=== PATIENT | male | born 1975 | race Caucasian/White ===

== ENCOUNTER 2021-04-11 16:04 | Emergency (ER) | payer BC, SELFPAY ==
--- NOTE | ~2021-04-11 | CT_ITS ---
EXAMINATION: CT ABDOMEN AND PELVIS WITHOUT CONTRAST CLINICAL INFORMATION: Hematuria status post fall COMPARISON: 12/03/2017 TECHNIQUE: Multidetector volumetric imaging was performed from the superior aspect of the liver through the pubic symphysis. Sagittal and coronal reformatted images were obtained on the technologist's workstation. This CT examination was performed using dose optimization techniques as appropriate, variously including the following: *Automated exposure control *Adjustment of mA and/or kV according to patient size (this includes techniques or standardized protocols for targeted exams where dose is matched to indication/reason for exam; i.e. extremities or head) *Use of iterative reconstruction technique DLP: 1365 mGy-cm FINDINGS: LUNG BASES: The visualized lung bases are unremarkable. LIVER, GALLBLADDER, AND BILIARY TREE: Changes of diffuse hepatic steatosis. No discrete lesion. No biliary dilatation. Gallstones without acute inflammatory changes. PANCREAS: Unremarkable. SPLEEN: Unremarkable. ADRENAL GLANDS: Unremarkable. KIDNEYS AND URETERS: The kidneys are normal in size, shape, and attenuation. No hydronephrosis, hydroureter, or calculi seen. No perinephric stranding. BLADDER: Unremarkable. GASTROINTESTINAL TRACT: Evidence for previous bowel resection with evidence for ileocolic anastomosis noted within the abdomen anteriorly. This appears unremarkable. No fibrous band anteriorly within the abdomen is again noted without evidence for any incarceration or definite hernia. No obstruction or serosal lesion. No free fluid. Gastric sleeve postsurgical changes noted as well. ABDOMINAL WALL: No significant hernia is appreciated. LYMPH NODES: Normal. VASCULAR: Unremarkable. PELVIC VISCERA: Unremarkable. OSSEOUS STRUCTURES: Unremarkable. CT/CT abdomen pelvis wo con IMPRESSION: No specific findings of any renal trauma. No stones. Chronic findings as above.
--- NOTE | ~2021-04-11 | CT_ITS ---
EXAMINATION: CT HEAD WITHOUT CONTRAST CLINICAL INFORMATION: Trauma COMPARISON: None TECHNIQUE: Contiguous axial imaging was performed from the skull base to vertex without intravenous administration of contrast. This CT examination was performed using dose optimization techniques as appropriate, variously including the following: *Automated exposure control *Adjustment of mA and/or kV according to patient size (this includes techniques or standardized protocols for targeted exams where dose is matched to indication/reason for exam; i.e. extremities or head) *Use of iterative reconstruction technique DLP: 1014 mGy-cm FINDINGS: There is no evidence of acute intracranial hemorrhage or territorial infarction. No abnormal mass effect or midline shift is seen. [place] to white matter differentiation is well preserved. No extra-axial fluid collections are identified. The ventricles are normal in size. There is no abnormal attenuation within the brain parenchyma. The osseous structures and soft tissues are normal. The mastoid air cells and visualized portions of the paranasal sinuses are well aerated. CT/CT head/brain wo con IMPRESSION: No acute intracranial pathology.
[2021-04-11 16:17] VITALS: BP 133/95; BP 175/105; PULSE 104; PULSE 110; RESP 20; TEMP 37.6; O2SAT 94; O2SAT 96; BMI 50.1
--- NOTE | 2021-04-11 16:29 | ED.FALL ---
HPI - Fall General Chief Complaint: Fall Stated Complaint: BACK PAIN W/BLOOD IN URINE Time Seen by Provider: 04/11/21 16:08 Source: patient Limitations: no limitations History of Present Illness HPI Narrative: Patient had a slip and fall yesterday. He states he stepped on [place] while he was working on his car and he slipped and fell landing on his left flank. He had immediate pain but otherwise felt okay. Later on he began having more pain and then developed hematuria. He states it started with clots. He has a history of kidney stones but this feels different. No recent fevers or chills. He states his urine is getting little bit better today. Prior to arrival, however, he was apparently confused. This prompted his to call EMS. He states he feels much less confused currently. He has a history of diabetes for which he is supposed to be on metformin. But he has been having trouble finding a new primary care provider and has not had any metformin approximately 2 weeks. He denies feeling ill prior to his fall. He is not on blood thinners. He did not hit his head. Related Data Previous Rx's Medication Instructions Recorded oxycodone-acetaminophen 5 mg-325 1 tab PO TID PRN #10 tab 04/11/21 mg tablet (Percocet) sulfamethoxazole 800 1 tab PO BID #10 tab 04/11/21 mg-trimethoprim 160 mg tablet (Bactrim DS) Allergies Allergy/AdvReac Type Severity Reaction Status Date / Time iodine [IODINE] Allergy Intermediate HIVES Unverified 04/02/20 15:17 haloperidol [Haldol] Allergy Unknown Unknown Verified 04/11/21 16:16 shellfish Allergy Unknown SOB Unverified 04/18/18 00:00 sitagliptin [Januvia] Allergy Unknown diarrhea Verified 01/30/17 00:00 hydromorphone [From Dilaudid] Allergy Unknown Verified 04/11/21 16:16 Review of Systems Constitutional: Comments: No headache or loss of consciousness. Positive confusion however Cardiovascular: Comments: No chest pain Respiratory: Comments: Some difficulty breathing which he attributes to the pain Gastrointestinal: Comments: No anterior abdominal pain. Positive bilateral flank pain, left greater than right Genitourinary: Comments: Hematuria. Some dysuria Musculoskeletal: Comments: No extremity injuries Neurologic: Comments: No focal weakness. No vision change [facility] Past Medical History Medical History (Updated 04/11/21 @ 20:13 by Raymond Muñiz MD) Diabetes GERD (gastroesophageal reflux disease) Social History Social History Smoked in Last 30 Days: No Use of substances other than those prescribed or required for medical reasons: No Advance Directives: No Advance Directives Information Provided: No Physical Exam Vital Signs: Vital Signs: Last Vital Signs Temp 99.6 F 04/11/21 16:17 Pulse 100 04/11/21 18:02 Resp 18 04/11/21 18:02 BP 170/85 H 04/11/21 18:28 Pulse Ox 96 04/11/21 18:02 Body Mass Index 50.1 Const: Other: Awake and alert. Appears uncomfortable when moving. HENMT: Other: Normocephalic atraumatic Eyes: Other: Pupils equal round reactive to light Neck: Other: Full range of motion. No midline tenderness Chest: Other: No chest wall tenderness crepitus or deformity Resp: Other: Clear and equal bilaterally without wheezes rales or rhonchi Cardio: Other: Regular rate and rhythm GI: Other: Soft nontender nondistended anteriorly. Positive left flank tenderness to percussion Skin: Other: Warm pink and dry. Positives and venous stasis changes bilateral lower extremities Neuro: Other: Awake and alert. Ambulatory. Nonfocal neuro exam Extrem: Other: No obvious extremity trauma Course Course Course Narrative: Hematuria post fall. Rule out renal laceration versus contusion. Retroperitoneal hemorrhage Kidney stone possible but less likely. Urinary tract infection Uncontrolled diabetes Diabetic ketoacidosis Dehydration brain Confusion Intracranial hemorrhage Concussion IV fluids ordered CT scan brain and abdomen. Patient has iodine allergy so we will do without contrast. Fentanyl IV. 11:00 p.m.. Workup in emergency department is reassuring in that the CT of the brain as well as the abdomen show no obvious acute traumatic injuries. His lab work is reassuring. His urinalysis, however, does show white cells consistent with a possible urinary tract infection. Will treat him with 5 days of Bactrim DS. Percocet for back pain. Work note MDM - Fall Lab Data Result diagrams: 04/11/21 16:45 04/11/21 16:45 Labs: Lab Results 04/11/21 04/11/21 04/11/21 Range/Units 16:45 16:45 19:32 WBC 16.6 H (4.8-10.8) X10*3/uL RBC 4.98 (4.60-5.80) X10*6/uL Hgb 14.3 (14.0-18.0) g/dl Hct 42.0 (42-52) % MCV 84.3 (80-98) fL MCH 28.7 (27.0-33.0) pg MCHC 34.0 (31.0-36.0) g/dl RDW 13.2 (11.0-16.0) % Plt Count 224 (160-400) X10*3/uL MPV 9.6 (9.4-12.4) fL Immature Gran % (Auto) 0.5 H (0.0-0.4) % Neut % (Auto) 70.9 (45-73) % Lymph % (Auto) 15.4 L (20-40) % [place] % (Auto) 11.0 (2-11) % Eos % (Auto) 1.8 (0-4) % Baso % (Auto) 0.4 (0-2) % Lymph # (Auto) 2.6 (1.2-4.9) X10*3/uL [place] # (Auto) 1.8 H (0.1-1.2) X10*3/uL Eos # (Auto) 0.3 (0.0-0.4) X10*3/uL Baso # (Auto) 0.1 (0.0-0.2) X10*3/uL Abs Immat Gran (auto) 0.09 H (0.00-0.03) X10*3/uL Absolute Neuts (auto) 11.8 H (2.0-8.3) X10*3/uL Absolute Nucleated RBC 0.000 (0.0-0.012) X10*3/uL Nucleated RBC % (auto) 0.0 (0.0-0.2) /100WBC Smear Tech's Comments VERIFIED Sodium 136 (135-145) mmol/L Potassium 3.7 (3.3-5.1) mmol/L Chloride 106 (96-108) mmol/L Carbon Dioxide 22 (22-29) mmol/L Anion Gap 12 (12-20) BUN 9 (9-16) mg/dL Creatinine 0.81 (0.5-1.4) mg/dL Estim Creat Clear Calc 218.4 Estimated GFR > 60 Random Glucose 182 H (60-115) mg/dL Calcium 8.5 (8.4-10.2) mg/dL Total Bilirubin 2.9 H (0.0-1.0) mg/dL AST 14 (5-37) U/L ALT 19 (0-40) U/L Alkaline Phosphatase 70 (39-117) U/L Total Protein 6.3 L (6.5-8.0) g/dL Albumin 3.7 (3.5-5.0) g/dL Urine Color YELLOW Urine Appearance HAZY Urine pH 6.0 (5.0-8.0) Ur Specific [place] 1.015 (1.005-1.025) Urine Protein 1+ H (NEG-TRACE) MG/DL Urine Glucose (UA) NEG (NEG) MG/DL Urine Ketones 5 (NEG) MG/DL Urine Blood 3+ H (NEG) Urine Nitrite NEG (NEG) Ur Leukocyte Esterase 1+ H (NEG) Urine RBC 15-29 H (0) /HPF Urine WBC 30-49 H (0-4) /HPF Urine WBC Clumps NOTED Ur Squamous Epith Cells TRACE /LPF Urine Bacteria 2+ /LPF Acetone, Qual Negative (Negative) Discharge Plan Discharge Clinical Impression: Low back pain Qualifiers: Chronicity: acute Back pain laterality: left Sciatica presence: without sciatica Qualified Code(s): M54.5 - Low back pain Urinary tract infection Qualifiers: Urinary tract infection type: acute cystitis Hematuria presence: with hematuria Qualified Code(s): N30.01 - Acute cystitis with hematuria Patient Disposition: Home, Self-Care Instructions: Urinary Tract Infection in Men (ED), Acute Low Back Pain (ED) Prescriptions: New sulfamethoxazole-trimethoprim [Bactrim DS] 800-160 mg tablet 1 tab PO BID Qty: 10 RF: 0 oxycodone-acetaminophen [Percocet] 5-325 mg tablet 1 tab PO TID PRN (Reason: pain) Qty: 10 RF: 0
[2021-04-11] MEDS: fentaNYL citrate/PF 100 MCG/2 ML VIAL IVPUSH ×2 (16:34→18:16)
[2021-04-11] MEDS: 0.9 % Sodium Chloride 1,000 ML 999 ML IV (16:35)
[2021-04-11 16:51] LABS: Basophils Absolute Auto 0.1 X10*3/uL (0.0-0.2); Basophils Percent Auto 0.4 % (0-2); Eosinophils Absolute Auto 0.3 X10*3/uL (0.0-0.4); Eosinophils Percent Auto 1.8 % (0-4); Hemoglobin 14.3 g/dl (14.0-18.0); Imm Gran Abs Auto 0.09 X10*3/uL (0.00-0.03); Imm Gran Pct Auto 0.5 % (0.0-0.4); Lymphocytes Absolute Auto 2.6 X10*3/uL (1.2-4.9); Lymphocytes Percent Auto 15.4 % (20-40); MANUAL DIFF FLAG SCAN; Mean Corpuscular Hemoglobin 28.7 pg (27.0-33.0); Mean Corpuscular Volume 84.3 fL (80-98); Mean Platelet Volume 9.6 fL (9.4-12.4); Monocytes Absolute Auto 1.8 X10*3/uL (0.1-1.2); Neutrophils Absolute Auto 11.8 X10*3/uL (2.0-8.3); Neutrophils Percent Auto 70.9 % (45-73); Platelet Count 224 X10*3/uL (160-400); Red Blood Count 4.98 X10*6/uL (4.60-5.80); Red Cell Distribution Width 13.2 % (11.0-16.0); SCAN SMEAR FLAG 1; White Blood Count 16.6 X10*3/uL (4.8-10.8)
[2021-04-11 17:05] LABS: Acetone, serum QL Negative (Negative)
[2021-04-11 17:08] LABS: Alanine Aminotransferase 19 U/L (0-40); Albumin Level 3.7 g/dL (3.5-5.0); Alkaline Phosphatase 70 U/L (39-117); Anion Gap 12 (12-20); Aspartate Amino Transferase 14 U/L (5-37); Bilirubin Total 2.9 mg/dL (0.0-1.0); Blood Urea Nitrogen 9 mg/dL (9-16); Calcium 8.5 mg/dL (8.4-10.2); Carbon Dioxide 22 mmol/L (22-29); Chloride 106 mmol/L (96-108); Creatinine Clr Calc Pharmacy 218.4; Estimated Glomerular Filt Rate > 60; Glucose Random 182 mg/dL (60-115); Potassium 3.7 mmol/L (3.3-5.1); Sodium 136 mmol/L (135-145); Total Protein 6.3 g/dL (6.5-8.0)
[2021-04-11 17:32] LABS: SLIDE REVIEW VERIFIED
[2021-04-11 18:02] VITALS: BP 181/98; PULSE 100; RESP 18; O2SAT 96
[2021-04-11 18:28] VITALS: BP 170/85
[2021-04-11 19:40] LABS: Appearance Urine HAZY; Color Urine YELLOW; Glucose Urine UA NEG (NEG); Leukocyte Esterase Urine 1+ (NEG); Nitrite Urine NEG (NEG); Specific Gravity - Urine 1.015 (1.005-1.025); UACC Culture Trigger YES; Urine Blood 3+ (NEG); Urine Ketones 5 MG/DL (NEG); Urine Protein 1+ MG/DL (NEG-TRACE)
[2021-04-11 19:48] LABS: WBC Urine 30-49 /HPF (0-4)
[2021-04-11 19:49] LABS: Bacteria Urine 2+ /LPF; Squamous Epithelial Cell Urine TRACE /LPF; WBC Clumps Urine NOTED
[2021-04-11 20:00] VITALS: RESP 17
--- NOTE | 2021-04-11 20:29 | PC.NURSE ---
PATIENT REFUSED VITALS TO BE TAKEN ,RN AWARE .
[2021-04-11] MEDS: Sulfamethox/Trimeth 800/160 TABLET 1 TAB PO (20:30)
== END 2021-04-11 20:34 | disposition home or self-care (01) ==
PROVIDERS: Emergency Provider Emergency Medicine; PCP Nurse Practitioner Family
DX: N30.01 Acute cystitis with hematuria (principal); G44.309 Post-traumatic headache, unspecified, not intractable; M54.5 Low back pain; Z79.899 Other long term (current) drug therapy
CPT/HCPCS: 36415; 70450; 74176; 80053; 81001; 82009; 85025; 87086; 87088; 87186; 96361; 96374; 96376; 99284; J3010

== ENCOUNTER 2021-10-01 11:32 | Outpatient (REF) | payer BC, SELFPAY ==
[2021-10-01 13:55] LABS: Appearance Urine TURBID; Color Urine YELLOW; Glucose Urine UA NEG (NEG); Leukocyte Esterase Urine NEG (NEG); Nitrite Urine NEG (NEG); PH 5.5 (5.0-8.0); Specific Gravity - Urine >= 1.030 (1.005-1.025); UACC Culture Trigger NO; Urine Blood NEG (NEG); Urine Ketones NEG (NEG); Urine Protein 1+ MG/DL (NEG-TRACE)
[2021-10-01 14:07] LABS: Estimated Average Glucose 169 mg/dL; Hemoglobin A1c % 7.5 %
[2021-10-01 14:12] LABS: Mucus Urine 1+ /LPF; RBC Urine 0 /HPF (0); WBC Urine 0-2 /HPF (0-4)
[2021-10-01 14:13] LABS: Amorphous Sediment Urine 2+ /LPF
[2021-10-01 14:14] LABS: Alanine Aminotransferase 23 U/L (0-40); Albumin Level 3.9 g/dL (3.5-5.0); Alkaline Phosphatase 70 U/L (39-117); Anion Gap 13 (12-20); Aspartate Amino Transferase 18 U/L (5-37); Bilirubin Total 3.4 mg/dL (0.0-1.0); Blood Urea Nitrogen 17 mg/dL (9-16); Calcium 9.3 mg/dL (8.4-10.2); Carbon Dioxide 23 mmol/L (22-29); Chloride 107 mmol/L (96-108); Cholesterol 118 mg/dL; Estimated Glomerular Filt Rate > 60; Glucose Fasting 169 mg/dL (60-99); HDL Cholesterol 42 mg/dL; LDL Cholesterol Calculated 48 mg/dl; Potassium 4.1 mmol/L (3.3-5.1); Sodium 139 mmol/L (135-145); Total Protein 6.7 g/dL (6.5-8.0); Triglycerides 142 mg/dL
[2021-10-01 14:19] LABS: Creatinine Urine 205.39 mg/dL; Microalbum/Creatinine Ratio Ur 150.9 ug/mg cr
== END 2021-10-01 11:33 | disposition home or self-care (01) ==
LOC: HO.HMGCLDS 11:32
PROVIDERS: Visit Provider Nurse Practitioner Family
DX: E11.9 Type 2 diabetes mellitus without complications (principal)
CPT/HCPCS: 36415; 80053; 80061; 81001; 81003; 82043; 83036; 84443

== ENCOUNTER 2021-12-22 07:51 | Emergency (ER) | payer BC, SELFPAY ==
[2021-12-22 07:58] VITALS: BP 155/102; PULSE 102; RESP 20; TEMP 37; O2SAT 97; BMI 46.0
--- NOTE | 2021-12-22 08:23 | ED_ITS ---
HPI - Abdominal Pain General Chief Complaint: Abdominal Pain Stated Complaint: N/V/D/Fever 3x days Time Seen by Provider: 12/22/21 08:10 Source: patient Mode of arrival: ambulatory Limitations: no limitations History of Present Illness HPI narrative: patient states Monday morning he woke up and had nausea vomiting and watery diarrhea. Is been ongoing since then. Last episode of vomiting was this morning. He states diarrhea has been very watery and multi colored and it has been yellow, green, brown. No black or melanotic stools. No history of similar issues. He does have a history of multiple intestinal surgeries secondary to abdominal trauma. History of ileostomy which was reversed more than 5 years ago. Positive fevers and chills without documented temperature. No urinary symptoms He states he has lost 17 lb since Monday. He has been drinking water and Gatorade but states it precipitates diarrhea. Related Data Home Medications Medication Instructions Recorded Confirmed omeprazole 20 mg capsule,delayed 20 mg PO DAILY 05/04/21 09/28/21 release Previous Rx's Medication Instructions Recorded alcohol swabs (Alcohol Prep Pads) 1 pad topical TID 30 days #100 ea 04/21/21 blood sugar diagnostic (FreeStyle #100 ea 04/21/21 Lite Strips) blood-glucose meter (FreeStyle #1 ea 04/21/21 Lite Meter) lancets 28 gauge (FreeStyle #100 ea 05/19/21 Lancets) irbesartan 75 mg tablet 75 mg PO DAILY 30 days #30 tabs 09/28/21 metformin 500 mg tablet 500 mg PO BID 30 days #60 tabs 11/08/21 nirmatrelvir 300 mg (150 mg x See Rx Instructions PO .COMPLEX 11/29/21 2)-ritonavir 100 mg tablet (EUA) #30 tabs (Paxlovid 300 mg () atorvastatin 10 mg tablet 10 mg PO BEDTIME 90 days #90 tabs 12/20/21 ondansetron 4 mg disintegrating 4 mg PO Q8H PRN nausea and 12/22/21 tablet vomiting #14 tabs Allergies Allergy/AdvReac Type Severity Reaction Status Date / Time iodine [IODINE] Allergy Intermediate HIVES Verified 09/28/21 13:09 haloperidol [Haldol] Allergy Unknown Unknown Verified 09/28/21 13:09 shellfish Allergy Unknown SOB Verified 09/28/21 13:09 sitagliptin [Januvia] Allergy Unknown diarrhea Verified 09/28/21 13:09 hydromorphone [From Dilaudid] Allergy Nausea Verified 09/28/21 13:09 Review of Systems Comments: Subjective fevers and chills Cardiovascular: Denies chest pain Respiratory: Denies cough Gastrointestinal: Denies abdominal pain and Reports diarrhea Musculoskeletal: Reports no additional musculoskeletal complaints Skin/Breast: Reports system reviewed and no additional complaints, except as docu Reports system reviewed and no additional complaints, except as documented [facility] Past Medical History Medical History (Updated 12/22/21 @ 10:31 by Raymond Muñiz MD) Chronic kidney disease Diabetes GERD (gastroesophageal reflux disease) Social History Social History Housing: House Patient Tobacco Use Status: Never used Tobacco e-Cigarette/Vaping Use: Never Used Advance Directives: No Advance Directives Information Provided: No service: No Current occupational status: employed 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 No wheezes rales or rhonchi Cardio Other: regular rate and rhythm without murmurs rubs or gallops GI Other: soft nontender nondistended. Bowel sounds normal. Skin Other: Warm pink and dry Neuro Other: nonfocal Course Course Course Narrative: dehydration secondary to gastroenteritis. Given multiple prior surgeries, he is at risk for bowel obstruction, but has no symptoms of obstruction at this point. Will treat with IV fluids and anti emetics. Await labs. 10:29. White count is 7. Renal function is normal Total bilirubin is 2.1 which is lower than his normal baseline. Transaminases are normal. Re-evaluation shows patient is comfortable sitting in a chair. Nausea is improved. He is stable for discharge home MDM - Abdominal Pain Lab Data Result diagrams: 12/22/21 08:50 12/22/21 09:11 Labs: Lab Results 12/22/21 12/22/21 12/22/21 Range/Units 08:50 09:11 09:11 WBC 7.1 (4.8-10.8) X10*3/uL RBC 5.77 (4.60-5.80) X10*6/uL Hgb 16.6 (14.0-18.0) g/dl Hct 49.1 (42.0-52.0) % MCV 85.1 (80.0-98.0) fL MCH 28.8 (27.0-33.0) pg MCHC 33.8 (31.0-36.0) g/dl RDW 13.5 (11.0-16.0) % Plt Count 302 (160-400) X10*3/uL MPV 9.8 (9.4-12.4) fL Immature Gran % (Auto) 0.7 H (0.0-0.4) % Neut % (Auto) 43.9 L (45-73) % Lymph % (Auto) 30.3 (20-40) % [place] % (Auto) 20.6 H (2-11) % Eos % (Auto) 4.1 H (0-4) % Baso % (Auto) 0.4 (0-2) % Lymph # (Auto) 2.2 (1.2-4.9) X10*3/uL [place] # (Auto) 1.5 H (0.1-1.2) X10*3/uL Eos # (Auto) 0.3 (0.0-0.4) X10*3/uL Baso # (Auto) 0.0 (0.0-0.2) X10*3/uL Abs Immat Gran (auto) 0.05 H (0.00-0.03) X10*3/uL Absolute Neuts (auto) 3.1 (2.0-8.3) x10*3/uL Absolute Nucleated RBC 0.000 (0.0-0.012) X10*3/uL Nucleated RBC % (auto) 0.0 (0.0-0.2) /100WBC Smear Tech's Comments VERIFIED Sodium 138 (135-145) mmol/L Potassium 3.5 (3.3-5.1) mmol/L Chloride 110 H (96-108) mmol/L Carbon Dioxide 17 L (22-29) mmol/L Anion Gap 15 (12-20) BUN 13 (9-16) mg/dL Creatinine 0.90 (0.5-1.4) mg/dL Estim Creat Clear Calc 182.3 Estimated GFR > 60 Random Glucose 132 H (60-115) mg/dL Calcium 8.2 L D (8.4-10.2) mg/dL Total Bilirubin 2.1 H (0.0-1.0) mg/dL AST 25 (5-37) U/L ALT 29 (0-40) U/L Alkaline Phosphatase 66 (39-117) U/L Total Protein 6.3 L (6.5-8.0) g/dL Albumin 3.7 (3.5-5.0) g/dL Lipase 23 (8-78) U/L Acetone, Qual Negative (Negative) COVID-19 (NISHANT) Negative (Negative) COVID-19 Clin Com See Note Discharge Plan Discharge Clinical Impression: Gastroenteritis Patient Disposition: Home, Self-Care Instructions: Gastroenteritis (ED) Prescriptions: New ondansetron 4 mg tablet,disintegrating 4 mg PO Q8H PRN (Reason: nausea and vomiting) Qty: 14 0RF No Action alcohol swabs [Alcohol Prep Pads] Pads, Medicated 1 pad topical TID 30 Days Qty: 100 0RF Rx Instructions: test BS 3 times daily (DME) FreeStyle Lite Strips Strip See Rx Instructions .Route Qty: 100 3RF Rx Instructions: test BS 3 times every day (DME) blood-glucose meter [FreeStyle Lite Meter] Kit See Rx Instructions .Route Qty: 1 0RF Rx Instructions: test blood sugar 3 times daily (DME) lancets [FreeStyle Lancets] 28 gauge misc See Rx Instructions .Route Qty: 100 0RF Rx Instructions: test BS 3 times daily metformin 500 mg tablet 500 mg PO BID 30 Days Qty: 60 2RF Paxlovid (EUA) 150 mg x 2- 100 mg tablet See Rx Instructions PO .COMPLEX Qty: 30 0RF Rx Instructions: take TWO 150 mg tablets of nirmatrelvir with ONE 100 mg tablet of ritonavir twice daily for 5 days PO atorvastatin 10 mg tablet 10 mg PO BEDTIME 90 Days Qty: 90 0RF irbesartan 75 mg tablet 75 mg PO DAILY 30 Days Qty: 30 3RF omeprazole 20 mg capsule,delayed release(DR/EC) 20 mg PO DAILY Stand Alone Forms: Work/School Release
[2021-12-22] MEDS: 0.9 % Sodium Chloride 1,000 ML 999 ML IV (08:53)
[2021-12-22] MEDS: ondansetron HCL 4 MG/2 ML VIAL IVPUSH (08:55)
[2021-12-22 09:07] LABS: Basophils Percent Auto 0.4 % (0-2); Eosinophils Absolute Auto 0.3 X10*3/uL (0.0-0.4); Eosinophils Percent Auto 4.1 % (0-4); Hematocrit 49.1 % (42.0-52.0); Hemoglobin 16.6 g/dl (14.0-18.0); Imm Gran Abs Auto 0.05 X10*3/uL (0.00-0.03); Imm Gran Pct Auto 0.7 % (0.0-0.4); Lymphocytes Absolute Auto 2.2 X10*3/uL (1.2-4.9); Lymphocytes Percent Auto 30.3 % (20-40); MANUAL DIFF FLAG SCAN; Mean Corpuscular HGB Conc 33.8 g/dl (31.0-36.0); Mean Corpuscular Hemoglobin 28.8 pg (27.0-33.0); Mean Corpuscular Volume 85.1 fL (80.0-98.0); Mean Platelet Volume 9.8 fL (9.4-12.4); Monocytes Absolute Auto 1.5 X10*3/uL (0.1-1.2); Monocytes Percent Auto 20.6 % (2-11); Neutrophils Absolute Auto 3.1 x10*3/uL (2.0-8.3); Neutrophils Percent Auto 43.9 % (45-73); Platelet Count 302 X10*3/uL (160-400); Red Blood Count 5.77 X10*6/uL (4.60-5.80); Red Cell Distribution Width 13.5 % (11.0-16.0); SCAN SMEAR FLAG 1; White Blood Count 7.1 X10*3/uL (4.8-10.8)
[2021-12-22 09:35] LABS: COVID-19 Test Negative (Negative); IDNOW Serial# 9DB6401D
[2021-12-22 09:37] LABS: Alanine Aminotransferase 29 U/L (0-40); Albumin Level 3.7 g/dL (3.5-5.0); Alkaline Phosphatase 66 U/L (39-117); Anion Gap 15 (12-20); Aspartate Amino Transferase 25 U/L (5-37); Bilirubin Total 2.1 mg/dL (0.0-1.0); Blood Urea Nitrogen 13 mg/dL (9-16); Calcium 8.2 mg/dL (8.4-10.2); Carbon Dioxide 17 mmol/L (22-29); Chloride 110 mmol/L (96-108); Creatinine Clr Calc Pharmacy 182.3; Estimated Glomerular Filt Rate > 60; Glucose Random 132 mg/dL (60-115); Lipase 23 U/L (8-78); Potassium 3.5 mmol/L (3.3-5.1); Sodium 138 mmol/L (135-145); Total Protein 6.3 g/dL (6.5-8.0)
[2021-12-22 09:46] LABS: SLIDE REVIEW VERIFIED
[2021-12-22 10:13] VITALS: BP 128/80; PULSE 101; RESP 16; TEMP 37; O2SAT 96
[2021-12-22 10:13] LABS: Acetone, serum QL Negative (Negative)
== END 2021-12-22 10:42 | disposition home or self-care (01) ==
PROVIDERS: Emergency Provider Emergency Medicine; PCP Nurse Practitioner Family
DX: K52.9 Noninfective gastroenteritis and colitis, unspecified (principal); Z20.822 Contact with and (suspected) exposure to COVID-19; R11.2 Nausea with vomiting, unspecified; E11.22 Type 2 diabetes mellitus with diabetic chronic kidney disease; I12.9 Hypertensive chronic kidney disease with stage 1 through stage 4 chronic kidney disease, or unspecified chronic kidney disease; N18.9 Chronic kidney disease, unspecified
CPT/HCPCS: 80053; 82009; 83690; 85025; 87635; 96361; 96374; 99284; J2405

== ENCOUNTER 2022-04-23 08:13 | Outpatient (REF) | payer BC, SELFPAY ==
[2022-04-23 11:09] LABS: MANUAL DIFF FLAG NO
[2022-04-23 11:16] LABS: Basophils Absolute Auto 0.1 X10*3/uL (0.0-0.2); Basophils Percent Auto 0.8 % (0-2); Eosinophils Absolute Auto 0.4 X10*3/uL (0.0-0.4); Eosinophils Percent Auto 4.7 % (0-4); Hematocrit 46.4 % (42.0-52.0); Hemoglobin 15.1 g/dl (14.0-18.0); Imm Gran Abs Auto 0.02 X10*3/uL (0.00-0.03); Imm Gran Pct Auto 0.2 % (0.0-0.4); Lymphocytes Absolute Auto 2.6 X10*3/uL (1.2-4.9); Lymphocytes Percent Auto 28.3 % (20-40); Mean Corpuscular HGB Conc 32.5 g/dl (31.0-36.0); Mean Corpuscular Hemoglobin 27.8 pg (27.0-33.0); Mean Corpuscular Volume 85.3 fL (80.0-98.0); Mean Platelet Volume 10.4 fL (9.4-12.4); Monocytes Absolute Auto 0.8 X10*3/uL (0.1-1.2); Monocytes Percent Auto 8.9 % (2-11); Neutrophils Absolute Auto 5.2 x10*3/uL (2.0-8.3); Neutrophils Percent Auto 57.1 % (45-73); Platelet Count 255 X10*3/uL (160-400); Red Blood Count 5.44 X10*6/uL (4.60-5.80); White Blood Count 9.1 X10*3/uL (4.8-10.8)
[2022-04-23 11:34] LABS: Estimated Average Glucose 143 mg/dL; Hemoglobin A1c % 6.6 %
[2022-04-23 11:35] LABS: Appearance Urine Clear; Color Urine Yellow; Glucose Urine UA >=1000 mg/dL (Negative); Leukocyte Esterase Urine Negative (Negative); Nitrite Urine Negative (Negative); PH 5.5 (5.0-9.0); Specific Gravity - Urine 1.025 (1.005-1.025); UMIC TRIGGER UACC YES; Urine Blood Negative (Negative); Urine Ketones Negative (Negative); Urine Protein Negative (Neg-Trace)
[2022-04-23 11:41] LABS: Bacteria Urine None Seen (None Seen); Hyaline Casts Urine 0-2 /LPF (0-2); RBC Urine 0-2 /HPF (0-2); Squamous Epithelial Cell Urine 0-2 /HPF (0-2); WBC Urine 0-5 /HPF (0-5)
[2022-04-23 11:50] LABS: Alanine Aminotransferase 18 U/L (0-40); Albumin Level 3.9 g/dL (3.5-5.0); Alkaline Phosphatase 65 U/L (39-117); Anion Gap 16 (12-20); Aspartate Amino Transferase 20 U/L (5-37); Bilirubin Total 2.6 mg/dL (0.0-1.0); Blood Urea Nitrogen 17 mg/dL (9-16); Calcium 8.8 mg/dL (8.4-10.2); Carbon Dioxide 20 mmol/L (22-29); Chloride 106 mmol/L (96-108); Cholesterol 102 mg/dL; Estimated Glomerular Filt Rate > 60; Glucose Fasting 121 mg/dL (60-99); HDL Cholesterol 45 mg/dL; LDL Cholesterol Calculated 37 mg/dl; Potassium 4.1 mmol/L (3.3-5.1); Sodium 138 mmol/L (135-145); Total Protein 6.6 g/dL (6.5-8.0); Triglycerides 101 mg/dL
[2022-04-23 11:53] LABS: TSH reflex Free T4 0.84 uIU/mL (0.32-4.0)
== END 2022-04-23 08:14 | disposition home or self-care (01) ==
LOC: HO.HMGCLDS 08:13
PROVIDERS: PCP Nurse Practitioner Family; Visit Provider Nurse Practitioner Family
DX: E11.9 Type 2 diabetes mellitus without complications (principal)
CPT/HCPCS: 36415; 80053; 80061; 81001; 83036; 84443; 85025

== ENCOUNTER 2023-02-24 09:06 | Outpatient (REF) | payer BC, SELFPAY ==
[2023-02-24 11:36] LABS: MANUAL DIFF FLAG NO
[2023-02-24 11:45] LABS: Basophils Absolute Auto 0.1 X10*3/uL (0.0-0.2); Eosinophils Absolute Auto 0.7 X10*3/uL (0.0-0.4); Eosinophils Percent Auto 7.2 % (0-4); Hematocrit 46.5 % (42.0-52.0); Hemoglobin 15.3 g/dl (14.0-18.0); Imm Gran Abs Auto 0.03 X10*3/uL (0.00-0.03); Imm Gran Pct Auto 0.3 % (0.0-0.4); Lymphocytes Absolute Auto 2.7 X10*3/uL (1.2-4.9); Lymphocytes Percent Auto 29.4 % (20-40); Mean Corpuscular HGB Conc 32.9 g/dl (31.0-36.0); Mean Corpuscular Hemoglobin 28.9 pg (27.0-33.0); Mean Corpuscular Volume 87.7 fL (80.0-98.0); Mean Platelet Volume 11.1 fL (9.4-12.4); Monocytes Absolute Auto 0.8 X10*3/uL (0.1-1.2); Monocytes Percent Auto 9.1 % (2-11); Neutrophils Absolute Auto 4.9 x10*3/uL (2.0-8.3); Platelet Count 243 X10*3/uL (160-400); White Blood Count 9.2 X10*3/uL (4.8-10.8)
[2023-02-24 11:47] LABS: Appearance Urine Clear; Color Urine Yellow; Glucose Urine UA >=1000 mg/dL (Negative); Leukocyte Esterase Urine Negative (Negative); Nitrite Urine Negative (Negative); PH 5.5 (5.0-9.0); Specific Gravity - Urine >= 1.030 (1.005-1.025); UMIC TRIGGER UACC YES; Urine Blood Negative (Negative); Urine Ketones Negative (Negative); Urine Protein Negative (Neg-Trace)
[2023-02-24 11:59] LABS: Bacteria Urine None Seen (None Seen); Hyaline Casts Urine 0-2 /LPF (0-2); RBC Urine 0-2 /HPF (0-2); Squamous Epithelial Cell Urine 0-2 /HPF (0-2); WBC Urine 0-5 /HPF (0-5)
[2023-02-24 12:14] LABS: Estimated Average Glucose 143 mg/dL; Hemoglobin A1c % 6.6 %
[2023-02-24 12:17] LABS: Alanine Aminotransferase 19 U/L (0-40); Albumin Level 3.7 g/dL (3.5-5.0); Alkaline Phosphatase 63 U/L (39-117); Anion Gap 11 (12-20); Aspartate Amino Transferase 19 U/L (5-37); Bilirubin Total 2.4 mg/dL (0.0-1.0); Blood Urea Nitrogen 15 mg/dL (9-16); Calcium 9.2 mg/dL (8.4-10.2); Carbon Dioxide 24 mmol/L (22-29); Chloride 109 mmol/L (96-108); Cholesterol 112 mg/dL; Estimated Glomerular Filt Rate > 60; Glucose Fasting 133 mg/dL (60-99); HDL Cholesterol 45 mg/dL; Iron 118 mcg/dL (45-160); LDL Cholesterol Calculated 44 mg/dl; Percent Iron Saturation 37 % (15-50); Potassium 4.1 mmol/L (3.3-5.1); Sodium 140 mmol/L (135-145); Total Iron Binding Capacity 315 mcg/dL (228-428); Total Protein 6.7 g/dL (6.5-8.0); Triglycerides 115 mg/dL; Unsaturated Iron Binding 197 ug/dL
[2023-02-24 12:18] LABS: Creatinine Urine 127.01 mg/dL; Microalbum/Creatinine Ratio Ur 25.9 ug/mg cr
[2023-02-24 12:35] LABS: Ferritin 28 ng/mL (20-250); Vitamin D 25-OH Total 31.1 ng/mL (>30)
[2023-02-24 13:51] LABS: Folate 9.1 ng/mL (> or = 4.0); Vitamin B12 672 pg/mL (200-900)
== END 2023-02-24 09:07 | disposition home or self-care (01) ==
LOC: HO.HMGCLDS 09:06
PROVIDERS: PCP Nurse Practitioner Family; Visit Provider Nurse Practitioner Family
DX: R53.83 Other fatigue (principal); E11.9 Type 2 diabetes mellitus without complications; E55.9 Vitamin D deficiency, unspecified
CPT/HCPCS: 36415; 80053; 80061; 81001; 82043; 82306; 82607; 82728; 82746; 83036; 83540; 84443; 85025

== ENCOUNTER 2023-02-28 14:00 | Outpatient (AMB) | payer BC, SELFPAY ==
--- NOTE | 2023-02-28 14:02 | A.OFFPC_ITS ---
Vital Signs 02/28/23 14:03 Height 6 ft 6 in Weight 413 lb BMI 47.7 BP 118/82 Blood Pressure Location Lt brachial Position Sitting Pulse 79 Pulse Source Pulse Oximeter Pulse Oximetry (%) 97 Oxygen Delivery Method Room Air Intake Visit Reasons: 3 month follow up DM/overdue Allergies iodine [IODINE] Allergy (Intermediate, Verified 02/28/23 14:07) HIVES haloperidol [From Haldol] Allergy (Unknown, Verified 02/28/23 14:07) Unknown shellfish derived Allergy (Unknown, Verified 02/28/23 14:07) Shortness of Breath sitagliptin [Januvia] Allergy (Unknown, Verified 02/28/23 14:07) diarrhea hydromorphone [From Dilaudid] Allergy (Verified 02/28/23 14:07) Nausea Medication List - Last Reconciled 02/28/23 by CINDY Neal- alcohol swabs (Alcohol Prep Pads) 1 pad topical TID 30 days bempedoic acid-ezetimibe 180-10 mg 1 tab PO DAILY 90 days blood sugar diagnostic (FreeStyle Lite Strips) test BS 3 times every day blood-glucose meter (FreeStyle Lite Meter kit) test blood sugar 3 times daily empagliflozin-metformin 12.5-1,000 mg ER (Synjardy XR) 2 tabs PO DAILY irbesartan 75 mg PO DAILY 30 days lancets (FreeStyle Lancets) test BS 3 times daily omeprazole 20 mg PO DAILY Tobacco use date assessed: 02/28/23 Dental Screening Dental Screen Date: 02/28/23 Did you have a dental visit in the last 12 months?: No Did you have a dental problem in the last 6 months where you did not have access to dental care?: No Was dental information given to patient?: No HPI 3 month follow up DM/overdue HPI Details Pt is a diabetic, on an ARB and a statin. Last A1C was 6.6, microalbumin is up to date. Denies polyuria, polydipsia, and neuropathy. Pt denies any signs and symptoms of hypoglycemia and does know how to correct it. Eye exam is up to date. Pt reports side effects to atorvastatin such as memory loss. Will stop this and start bempedoic acid-ezetimibe 180-10mg. Due for colon screen, will refer to GI. 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 Alvaro Miles, Corrie Li, Kailash Madera and colleagues, with an educational glenys from [employer]. Review of Systems Const Reports as per HPI Physical exam (Primary Care) Vital Signs: Last Vital Signs Pulse 79 02/28/23 14:03 BP 118/82 02/28/23 14:03 Pulse Ox 97 02/28/23 14:03 Oxygen Delivery Method Room Air 02/28/23 14:03 BMI result Body Mass Index 47.7 Tobacco/Smoking Status: Tobacco use Status Tobacco use date assessed 02/28/23 02/28/23 14:10 Patient Tobacco Use Status Never used Tobacco 02/28/23 14:03 e-Cigarette/Vaping Use Never Used 02/28/23 14:03 Thrive Assessment: Date of Thrive Assessment Date Thrive assessed 10/17/22 02/28/23 14:03 Const General: cooperative Nutritional Appearance: obese morbidly obese Orientation/consciousness: patient oriented x3 Neuro General: patient oriented x3 Extrem Other: bilat feet: + sensation with use of monofilament, feet intact, onychomycosis noted bilat Psych Appearance: grossly normal Mental Status: mental status grossly normal Speech and movement: Normal speech and movement present Affect: normal affect Attitude: cooperative Thought process: Normal thought process present Thought content: Normal thought content present Insight: Good insight present (Psych) Judgement: Good judgement present (Psych) Assessment and Plan Assessment & Plan (1) Screening for colon cancer: Code(s): Z12.11 - Encounter for screening for malignant neoplasm of colon Plan: Referred to GI (2) Diabetes: Code(s): E11.9 - Type 2 diabetes mellitus without complications Plan The patient agreed to the use of a medical surgical tech for this encounter. Scribed for BHUPENDRA Pettit by Olesya Maldonado medical surgical tech, on 02/28/2023 at 14:15 EST. Orders: Referrals Gastroenterology Referral Z12.11 - Encounter for screening for malignant neoplasm of colon Medications: New bempedoic acid-ezetimibe 180-10 mg 1 tab PO DAILY 90 tabs 1RF 90 days cyclobenzaprine 10 mg PO BEDTIME PRN 30 tabs 0RF muscle spasm Discontinued atorvastatin Discontinued Reason: Doctor's Order 10 mg PO BEDTIME 90 days 90 tabs 1RF Coding Level of Care Code Est Pt Level 3 (66646) Diagnoses Screening for colon cancer Z12.11 Diabetes E11.9
[2023-02-28 14:03] VITALS: BP 118/82; PULSE 79; O2SAT 97; BMI 47.7
== END 2023-02-28 14:54 | disposition home or self-care (01) ==
PROVIDERS: Visit Provider Nurse Practitioner Family
DX: Z12.11 Encounter for screening for malignant neoplasm of colon (principal); E11.9 Type 2 diabetes mellitus without complications
CPT/HCPCS: 99213

== ENCOUNTER 2023-05-08 15:20 | Outpatient (AMB) | payer BC, SELFPAY ==
--- NOTE | 2023-05-08 15:22 | A.OFFVIS_ITS ---
Intake Vital Signs 05/08/23 15:23 Height 6 ft 6 in Weight 410 lb 0.957 oz BMI 47.4 BP 140/85 H Blood Pressure Location Rt brachial Position Sitting Pulse 80 Pulse Source Pulse Oximeter Intake Visit Reasons: Colonoscopy Screening Intake Note: Pt presents to the office today for a colonoscopy screening. Pt states he has diarrhea which he has had since his surgeries back in [id number]. Pt denies any nausea or vomiting. Allergies iodine [IODINE] Allergy (Intermediate, Verified 05/08/23 15:25) HIVES haloperidol [From Haldol] Allergy (Unknown, Verified 05/08/23 15:25) Unknown shellfish derived Allergy (Unknown, Verified 05/08/23 15:25) Shortness of Breath sitagliptin [Januvia] Allergy (Unknown, Verified 05/08/23 15:25) diarrhea hydromorphone [From Dilaudid] Allergy (Verified 05/08/23 15:25) Nausea HPI Colonoscopy Screening HPI Details 48 year old? male past medical history o f hypertension, diabetes, DARBY(not using CPAP), multiple surgeries which includes bariatric surgery in 2013, patient reports that he gained about 100 lb since the surgery. Patient is here today for pre colonoscopy screening.? Patient was sent to us by his PCP.? This is his first colonoscopy screening.? Patient reports that he had industrial accident at work were patient fell backwards and piece of a pipe went through his small intestine. Patient had to wear ileostomy for 7 years. Ileostomy was reversed in 2013 that is when patient had bariatric surgery. Patient was hospitalized for 3 months after the accident. Patient denies any other gastrointestinal symptoms in the past or at present.? Denies any personal or family history of gastrointestinal disease, colon polyps, or cancer.? Denies history of difficulty with sedation or anesthesia in the past.? ? Denies any history of cardiac, renal, pulmonary, or hepatic disease.?? No history of infectious? diseases like hepatitis A, B, C, HIV or tuberculosis.? Patient is not on any anticoagulation therapy. [facility] Medical History (Updated 05/08/23 @ 15:34 by Jodee East MA) History of anal fissures Personal history of penetrating abdominal trauma [place] syndrome CKD (chronic kidney disease) stage 1, GFR 90 ml/min or greater Chronic kidney disease Diabetes GERD (gastroesophageal reflux disease) Surgical History (Updated 05/08/23 @ 15:36 by Jodee East MA) Hx of hernia repair Hx of appendectomy Hx of cholecystectomy Hx of ileostomy Social History (Updated 05/08/23 @ 15:27 by Jodee East MA) Housing: House Alcohol intake: current Alcohol intake frequency: holidays/special occasions only Patient Tobacco Use Status: Never used Tobacco e-Cigarette/Vaping Use: Never Used Second Hand Smoke Exposure: Yes service: No Current occupational status: employed 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 Current occupational exposures/hazards: No Cognitive needs: No Hearing needs: No Vision needs: No Review of Systems Const Denies weight gain and Denies weight loss ENT Reports no additional complaints, Denies dysphagia and Denies odynophagia Card Reports no additional complaints Resp Reports no additional complaints GI Denies abdominal pain, Denies belching, Denies melena, Denies bloating, Denies change in bowel habits, Denies dysphagia, Denies excessive flatus, Denies dyspepsia, Denies heartburn, Denies diarrhea, Denies loose stools, Denies nausea, Denies odynophagia and Denies vomiting Reports no additional complaints Musc Reports no additional complaints Neuro Reports no additional complaints Psych Reports no additional complaints Endo Reports no additional complaints Physical Exam Vital Signs: Last Vital Signs Pulse 80 05/08/23 15:23 BP 140/85 H 05/08/23 15:23 BMI result Body Mass Index 47.4 Const General: healthy appearing, no acute distress and well developed Nutritional Appearance: obese Orientation/consciousness: patient oriented x3 HEENT Head: Yes normal to inspection, Yes normocephalic and Yes atraumatic Face and sinus: Yes normal facial exam Mouth: Normal oral and palatal mucosa present Throat: Yes posterior oropharynx normal, Yes tonsils normal and Yes uvula midline Eyes General: appearance normal, both eyes and all related structures Neck Neck: Yes normal visual inspection, Yes full ROM and Yes trachea midline Thyroid: Thyroid normal Resp Effort & Inspection: normal respiratory effort, able to speak in complete se ntences, no tracheal deviation and symmetric chest movement Auscultation: clear to auscultation bilaterally Cardio Rate: regular rate Heart sounds: S1 normal heart sound present and S2 normal heart sound present GI Inspection: No distended and Yes obesity Palpation (GI): Soft to palpation, not firm, nontender and No hepatosplenomegaly present Auscultation: normal bowel sounds General: Yes no CVA tenderness Back/Spine/Pelvis Back: no CVA tenderness Skin General skin exam: elasticity normal, turgor normal and dry skin Neuro General: patient oriented x3 Psych Appearance: grossly normal Mental Status: mental status grossly normal Assessment & Plan Assessment & Plan (1) Screening for colon cancer: Code(s): Z12.11 - Encounter for screening for malignant neoplasm of colon Plan Patient denies any GI, cardiac or respiratory symptoms.? Denies any issues with anesthesia in the past.? Denies any history of sleep apnea.? No history infectious diseases in the past or present.? Not on any anticoagulation therapy.? No family or personal history of colon cancer or polyps.? As mentioned above in HPI if it has extensive history with multiple surgeries. Patient denies melena, hematochezia, unintentional weight loss or ribbon like stools.? Discussed at length the pre-procedure,? prep, diet & medications as well as what to expect prior, during and after the procedure.?? Stressed the importance of good bowel prep. ?Recommended the use of Vaseline or Calmoseptine OTC & baby wipes with bowel movements to promote comfort.? ?Patient verbalizes understanding and agrees to plan of care.? He was given the opportunity to ask questions and all questions answered.? We will see him after the procedure.? Medications: New bisacodyl (Dulcolax (bisacodyl)) take 4 tabs at noon the day before your colonoscopy 20 mg (4 x 5 mg) PO ONCE 4 tabs 0RF 1 day Z12.11 - Encounter for screening for malignant neoplasm of colon polyethylene glycol 3350 (Miralax) As directed by gastroenterology department at [facility] 238 grams PO ONCE 238 grams 0RF Z12.11 - Encounter for screening for malignant neoplasm of colon Coding Level of Care Code New Pt Level 3 (55737) Diagnoses Screening for colon cancer Z12.11 Time Spent (min) 40 Comment 30 minutes spent with patient and additional 10 minutes spent reviewing his records
[2023-05-08 15:23] VITALS: BP 140/85; PULSE 80; BMI 47.4
== END 2023-05-08 15:59 | disposition home or self-care (01) ==
PROVIDERS: PCP Nurse Practitioner Family; Visit Provider Nurse Practitioner Family
DX: Z01.818 Encounter for other preprocedural examination (principal); Z12.11 Encounter for screening for malignant neoplasm of colon
CPT/HCPCS: S0285

== ENCOUNTER → 2023-05-08 15:20 | Outpatient (BNVA) | payer BC, SELFPAY | PROVIDERS: PCP Nurse Practitioner Family; Visit Provider Nurse Practitioner Family ==

== ENCOUNTER 2023-10-16 10:26 | Outpatient (REF) | payer BC, SELFPAY ==
[2023-10-16 13:25] LABS: MANUAL DIFF FLAG NO
[2023-10-16 13:32] LABS: Basophils Absolute Auto 0.1 X10*3/uL (0.0-0.2); Basophils Percent Auto 0.7 % (0-2); Eosinophils Absolute Auto 0.4 X10*3/uL (0.0-0.4); Eosinophils Percent Auto 4.2 % (0-4); Hemoglobin 16.1 g/dl (14.0-18.0); Imm Gran Abs Auto 0.05 X10*3/uL (0.00-0.03); Imm Gran Pct Auto 0.5 % (0.0-0.4); Lymphocytes Absolute Auto 3.1 X10*3/uL (1.2-4.9); Lymphocytes Percent Auto 31.2 % (20-40); Mean Corpuscular HGB Conc 33.5 g/dl (31.0-36.0); Mean Corpuscular Hemoglobin 29.1 pg (27.0-33.0); Mean Corpuscular Volume 86.8 fL (80.0-98.0); Mean Platelet Volume 10.9 fL (9.4-12.4); Monocytes Percent Auto 9.6 % (2-11); Neutrophils Absolute Auto 5.3 x10*3/uL (2.0-8.3); Neutrophils Percent Auto 53.8 % (45-73); Platelet Count 285 X10*3/uL (160-400); Red Blood Count 5.53 X10*6/uL (4.60-5.80); Red Cell Distribution Width 12.9 % (11.0-16.0); White Blood Count 9.9 X10*3/uL (4.8-10.8)
[2023-10-16 13:43] LABS: Estimated Average Glucose 140 mg/dL; Hemoglobin A1c % 6.5 % (<6.0)
[2023-10-16 14:12] LABS: Alanine Aminotransferase 21 U/L (0-40); Albumin Level 3.8 g/dL (3.5-5.0); Alkaline Phosphatase 68 U/L (39-117); Anion Gap 13 (12-20); Aspartate Amino Transferase 21 U/L (5-37); Bilirubin Total 1.8 mg/dL (0.0-1.0); Blood Urea Nitrogen 17 mg/dL (9-16); Calcium 9.2 mg/dL (8.4-10.2); Carbon Dioxide 24 mmol/L (22-29); Chloride 108 mmol/L (96-108); Cholesterol 139 mg/dL (<200); Estimated Glomerular Filt Rate > 60; Glucose Fasting 127 mg/dL (60-99); HDL Cholesterol 50 mg/dL (>40); LDL Cholesterol Calculated 66 mg/dL (<100); Potassium 4.2 mmol/L (3.3-5.1); Sodium 141 mmol/L (135-145); Triglycerides 119 mg/dL (<150)
[2023-10-16 14:23] LABS: Appearance Urine Clear; Color Urine Yellow; Glucose Urine UA >=1000 mg/dL (Negative); Leukocyte Esterase Urine Negative (Negative); Nitrite Urine Negative (Negative); Specific Gravity - Urine >= 1.030 (1.005-1.025); UMIC TRIGGER UACC YES; Urine Blood Negative (Negative); Urine Ketones Negative (Negative); Urine Protein Negative (Neg-Trace)
[2023-10-16 14:36] LABS: Bacteria Urine None Seen (None Seen); Hyaline Casts Urine 0-2 /LPF (0-2); RBC Urine 0-2 /HPF (0-2); Squamous Epithelial Cell Urine 0-2 /HPF (0-2); WBC Urine 0-5 /HPF (0-5)
== END 2023-10-16 10:27 | disposition home or self-care (01) ==
LOC: HO.HMGCLDS 10:26
PROVIDERS: PCP Nurse Practitioner Family; Visit Provider Nurse Practitioner Family
DX: E11.9 Type 2 diabetes mellitus without complications (principal)
CPT/HCPCS: 36415; 80053; 80061; 81001; 81003; 83036; 84443; 85025

== ENCOUNTER 2023-10-17 10:29 | Outpatient (AMB) | payer BC, SELFPAY ==
--- NOTE | 2023-10-17 10:51 | MHC.PC.OV ---
Vital Signs 10/17/23 10:53 Height 6 ft 6 in Weight 414 lb BMI 47.8 BP 110/80 Blood Pressure Location Rt brachial Position Sitting Pulse 74 Pulse Source Pulse Oximeter Pulse Oximetry (%) 98 Oxygen Delivery Method Room Air Intake Visit Reasons: F/U DM, HTN Intake Note: patient here to follow up on diabetes and HTN Allergies iodine [IODINE] Allergy (Intermediate, Verified 10/17/23 10:55) HIVES haloperidol [From Haldol] Allergy (Unknown, Verified 10/17/23 10:55) Unknown shellfish derived Allergy (Unknown, Verified 10/17/23 10:55) Shortness of Breath sitagliptin [Januvia] Allergy (Unknown, Verified 10/17/23 10:55) diarrhea hydromorphone [From Dilaudid] Allergy (Verified 10/17/23 10:55) Nausea Tobacco use date assessed: 10/17/23 Dental Screening Dental Screen Date: 10/17/23 Did you have a dental visit in the last 12 months?: No Did you have a dental problem in the last 6 months where you did not have access to dental care?: No Was dental information given to patient?: Patient has dentist HPI F/U DM, HTN HPI Details Pt is a diabetic, on an ARB. Last A1C was 6.5, microalbumin is up to date. Denies polyuria, polydipsia, and neuropathy. Pt denies any signs and symptoms of hypoglycemia and does know how to correct it. Spoke to pt about weight loss, with increasing physical activity, proper portion size. [facility] Medical History History of anal fissures Personal history of penetrating abdominal trauma [place] syndrome CKD (chronic kidney disease) stage 1, GFR 90 ml/min or greater Chronic kidney disease Diabetes GERD (gastroesophageal reflux disease) Surgical History Hx of hernia repair Hx of appendectomy Hx of cholecystectomy Hx of ileostomy Social History Housing: House Alcohol intake: current Alcohol intake frequency: holidays/special occasions only Patient Tobacco Use Status: Never used Tobacco e-Cigarette/Vaping Use: Never Used Second Hand Smoke Exposure: Yes service: No Current occupational status: employed 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 25726 - PHQ-9 Billing: Patient declined-do not bill Source: Developed by Drs. Alvaro Miles, Corrie Li, Kailash Madera and colleagues, with an educational glenys from [employer]. Thrive Questionnaire Date Thrive assessed: 10/17/23 What is your living situation today?: I choose not to answer this question Within the past 12 months, did the food you bought not last and you didn't have the money to get more?: I choose not to answer this question Within the past 12 months, did you worry whether your food would run out before you got money to buy more?: I choose not to answer this question Do you have trouble paying for medicines?: I choose not to answer this question Do you have trouble getting transportation to medical appointments?: I choose not to answer this question Do you have trouble paying your heating and electricity bill?: I choose not to answer this question Do you have trouble taking care of your child, family member or friend?: I choose not to answer this question Do you have trouble with day-to-day activities such as bathing, preparing meals, shopping, managing finances, etc.?: I choose not to answer this question Are you currently unemployed and looking for a job?: I choose not to answer this question Are you interested in more education?: I choose not to answer this question Currently or been in a relationship where the following occur: I choose not to answer this question THRIVE Score: 0 AUDIT C Alcohol Use Questionnaire (AUDIT-C) 1. How often do you have a drink containing alcohol?: Never 3. How often do you have six or more drinks on one occasion?: Never Total Score: 0 Score Reviewed/Action Taken: No MADDY-7 AMB Questionnaire MADDY-7 Date MADDY - 7 assessed: 10/17/23 Source: Developed by Drs. Alvaro Miles, Corrie Li, Kailash Madera and colleagues, with an educational glenys from [employer]. MADDY-7 Assessment Billing MADDY-7 Assessment Tool: pt declined-do not bill Review of Systems Const Reports as per HPI Physical exam (Primary Care) Vital Signs: Last Vital Signs Pulse 74 10/17/23 10:53 BP 110/80 10/17/23 10:53 Pulse Ox 98 10/17/23 10:53 Oxygen Delivery Method Room Air 10/17/23 10:53 BMI result Body Mass Index 47.8 Tobacco/Smoking Status: Tobacco use Status Tobacco use date assessed 10/17/23 10/17/23 10:59 Patient Tobacco Use Status Never used Tobacco 10/17/23 10:53 e-Cigarette/Vaping Use Never Used 10/17/23 10:53 Thrive Assessment: Date of Thrive Assessment Date Thrive assessed 10/17/23 10/17/23 11:35 Currently or been in a relationship where the following occur: I choose not to answer this question Const General: cooperative Nutritional Appearance: obese morbidly obese Resp Effort & Inspection: normal respiratory effort Auscultation: clear to auscultation bilaterally Cardio Rate: regular rate Rhythm: regular rhythm Heart sounds: S1 normal heart sound present and S2 normal heart sound present Extrem Other: bilat feet: + sensation with use of monofilament, feet intact Psych Appearance: grossly normal Mental Status: mental status grossly normal Speech and movement: Normal speech and movement present Affect: normal affect Attitude: cooperative Thought process: Normal thought process present Thought content: Normal thought content present Insight: Good insight present (Psych) Judgement: Good judgement present (Psych) Assessment and Plan Assessment & Plan (1) Diabetes: Code(s): E11.9 - Type 2 diabetes mellitus without complications Plan: work on diet Plan The patient agreed to the use of a director of medical services for this encounter. Scribed for BHUPENDRA Pettit by Olesya Maldonado director of medical services, on 10/17/2023 at 11:10 EST. Coding Level of Care Code Est Pt Level 3 (81619) Diagnoses Diabetes E11.9
[2023-10-17 10:53] VITALS: BP 110/80; PULSE 74; O2SAT 98; BMI 47.8
== END 2023-10-17 11:32 | disposition home or self-care (01) ==
PROVIDERS: PCP Nurse Practitioner Family; Visit Provider Nurse Practitioner Family
DX: E11.9 Type 2 diabetes mellitus without complications (principal)
CPT/HCPCS: 99213

== ENCOUNTER 2023-10-29 12:08 | Emergency (ER) | payer BC, SELFPAY ==
[2023-10-29 12:18] VITALS: BP 157/90; PULSE 87; RESP 16; TEMP 36.4; O2SAT 97; BMI 46.2
--- NOTE | 2023-10-29 12:18 | ED.SKABFB ---
HPI - Skin/Abscess/Foreign Bdy General Chief complaint: Skin/Abscess/Foreign Body Stated complaint: Cyst Time Seen by Provider: 10/29/23 12:42 Source: patient and RN notes reviewed Mode of arrival: ambulatory Limitations: no limitations History of Present Illness HPI narrative: This is a 48-year-old male, with a history of diabetes, who presents emergency department with complaints of painful lump on his buttocks x2 days. Patient states that he initially noticed this swelling 2 days ago and has had increased pain, swelling in this area since. Denies history of similar symptoms in the past. He states that he previously has had cysts in his armpits before however never in this region. He denies any fevers or chills. Denies any episodes of hyperglycemia over the last several days. No body aches. No chest pain or shortness a breath. He is otherwise feeling well. No other complaints or concerns at this time. MD complaint: abscess/boil Onset (ago): day(s) Tetanus up to date: yes Location: buttocks Severity: moderate Quality: aching Pain Consistency: constant Relieving factors: none Exacerbating factors: none Context: none Associated symptoms: denies other symptoms Treatments prior to arrival: none Related Data Home Medications ?Medication ?Instructions ?Recorded ?Confirmed omeprazole 20 mg capsule,delayed 20 mg PO DAILY 05/04/21 02/28/23 release Previous Rx's ?Medication ?Instructions ?Recorded alcohol swabs (Alcohol Prep Pads) 1 pad topical TID 30 days #100 ea 04/21/21 blood sugar diagnostic (FreeStyle #100 ea 04/21/21 Lite Strips) blood-glucose meter (FreeStyle #1 ea 04/21/21 Lite Meter kit) lancets 28 gauge (FreeStyle #100 ea 05/19/21 Lancets) irbesartan 75 mg tablet 75 mg PO DAILY 30 days #30 tabs 04/22/22 cyclobenzaprine 10 mg tablet 10 mg PO BEDTIME PRN muscle spasm 02/28/23 #30 tabs ezetimibe 10 mg tablet 10 mg PO DAILY #90 tabs 03/09/23 bisacodyl 5 mg tablet,delayed 20 mg (4 x 5 mg) PO ONCE 1 day #4 05/08/23 release (Dulcolax (bisacodyl)) tabs polyethylene glycol 3350 17 238 g PO ONCE #238 grams 05/08/23 gram/dose oral powder (Miralax) empagliflozin 12.5 mg-metformin ER 2 tab (2 x 12.5-1,000 mg) PO DAILY 09/23/23 1,000 mg tablet,extended rel 24 hr #90 ea (Synjardy XR) cephalexin 500 mg capsule 500 mg PO QID 5 days #20 caps 10/29/23 doxycycline hyclate 100 mg capsule 100 mg PO BID 5 days #10 caps 10/29/23 ibuprofen 600 mg tablet 600 mg PO Q6H PRN pain #30 tabs 10/29/23 Allergies Allergy/AdvReac Type Severity Reaction Status Date / Time iodine [IODINE] Allergy Intermediate HIVES Verified 10/29/23 12:19 haloperidol [From Haldol] Allergy Unknown Unknown Verified 10/29/23 12:19 shellfish derived Allergy Unknown Shortness Verified 10/29/23 12:19 of Breath sitagliptin [Januvia] Allergy Unknown diarrhea Verified 10/29/23 12:19 hydromorphone [From Dilaudid] Allergy Nausea Verified 10/29/23 12:19 Review of Systems Review of Systems: Yes all other systems are reviewed and are negative Constitutional: Constitutional: Reports as per [facility] Past Medical History Medical History History of anal fissures Personal history of penetrating abdominal trauma [place] syndrome CKD (chronic kidney disease) stage 1, GFR 90 ml/min or greater Chronic kidney disease Diabetes GERD (gastroesophageal reflux disease) Surgical History Hx of hernia repair Hx of appendectomy Hx of cholecystectomy Hx of ileostomy Social History Social History Housing: House Alcohol intake: current Alcohol intake frequency: holidays/special occasions only Patient Tobacco Use Status: Never used Tobacco e-Cigarette/Vaping Use: Never Used Second Hand Smoke Exposure: Yes Advance Directives: No Advance Directives Information Provided: No service: No Current occupational status: employed 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 [employer] Current occupational exposures/hazards: No Cognitive needs: No Hearing needs: No Vision needs: No Physical Exam Vital Signs: Vital Signs: Last Vital Signs Temp 98.2 F 10/29/23 14:15 Pulse 81 10/29/23 14:15 Resp 20 10/29/23 14:15 BP 123/68 10/29/23 14:15 Pulse Ox 98 10/29/23 14:15 O2 Del Method Room Air 10/29/23 14:15 BMI result Body Mass Index 46.2 Const: General: cooperative, comfortable and no acute distress Orientation/consciousness: patient oriented x3 Limitations: no limitations HEENT: Head: Yes normal to inspection, Yes normocephalic and Yes atraumatic Ears: hearing grossly normal bilaterally General nose exam: Normal external nose present Face and sinus: Yes normal facial exam Mouth: Normal oral and palatal mucosa present, oropharynx normal and moist mucous membranes Throat: Yes posterior oropharynx normal Eyes: General: appearance normal, both eyes and all related structures Eyelids: Yes eyelids normal Conjunctivae: conjunctivae normal Sclerae: sclerae normal Pupils: Equal, round and reactive pupils present EOM: EOMs intact bilaterally Neck: Neck: Yes normal visual inspection, Yes full ROM and Yes no lymphadenopathy Lymphatic: no lymphadenopathy noted Chest: Chest palpation & inspection: normal inspection of the chest Resp: Effort & Inspection: normal respiratory effort and able to speak in complete sentences Auscultation: clear to auscultation bilaterally, no crackles, no rales, no rhonchi and no wheezes Cardio: Rate: regular rate Rhythm: regular rhythm Heart sounds: S1 normal heart sound present and S2 normal heart sound present GI: Other: Left inner buttock with 3 x 3 cm tender, fluctuant mass, with mild drainage noted. Mild induration and erythema noted, does not extend into the perineum. Inspection: Yes normal to inspection Skin: General skin exam: no rashes or lesions noted Trauma: no lacerations or abrasions Wounds: no wounds Neuro: General: patient oriented x3 and moves all extremities Cranial nerves: Yes Equal, round and reactive pupils present Extrem: General: Yes normal to inspection Right upper extremity: normal to inspection Left upper extremity: normal to inspection Right lower extremity: normal to inspection Left lower extremity: normal to inspection Course Course Course Narrative: This is an RME: Additional HPI, ROS, PE not included below will be deferred to primary provider. Patient is a 48-year-old male presents to the emergency department for evaluation a reported cyst to the buttock, near midline appeared yesterday, increasing in size and pain. Reports a history of abscesses to the axilla many years ago. Denies any additional skin rashes or lesions. Plan: Placed in waiting room pending bed availability in [facility] [place] for evaluation Reevaluation(s) Reevaluation #1: Patient tolerated procedure well without any complications or concerns. We are unable to pack the area as patient has an allergy to iodine. Educated the importance of warm soaks, take antibiotic as prescribed. Given return precautions. I advised patient to return in 48-72 hours to ensure that the area is healing well. He understands and agrees with plan. Patient stable for discharge Time: 15:16 Medical Decision Making Medical Decision Making MDM Narrative: This is a 48-year-old male, with a history of diabetes, who presents to the emergency department with complaints of left buttock abscess x2 days. On arrival, vital signs within normal limits, he is not toxic appearing, speaking in full sentences. Denies history of similar symptoms in the past. On examination, patient has a tender, fluctuant mass consistent with an abscess. Other differential diagnoses include cellulitis, cyst, Mark gangrene-unlikely as this does not extend beyond region. He is otherwise feeling well. Abscess requiring incision and drainage today. Patient is agreeable for procedure. Differential Diagnosis Differential Diagnoses: The differential diagnosis associated with the presentation includes See above Admission/Observation Consideration of admission/observation: Escalation of care including admission/observation considered Escalation of care including admission/observation considered however given workup today not warranted at this time. Radiology Impression Discussion of test interpretation with radiology: I have reviewed the radiologist's reading. External Record Review External record reviewed: Inpatient record, Office record, Outpatient record, Prior outpatient labs, Prior outpatient radiology, Primary care record and Outside ED record Procedures Abscess I/D Site: other (left buttock) Side (if applicable): left Local Anesthetic: lidocaine 1% Amount of anesthesia used (mL): 4 Technique: incised with blade Amount of fluid expressed (mL): 10 Sent for culture/gram staining?: No Irrigation: Yes Packing used?: none Discharge Plan Discharge Clinical Impression: Abscess of buttock, left Patient Disposition: Home, Self-Care Instructions: Abscess (ED), Incision and Drainage (ED) Additional Instructions: You were seen in the emergency department today and you had an abscess that required an incision and drainage. Please keep area clean and dry. Warm compresses 5-6 times per day. This area will continue to drain, this is normal. We have provided you with dressing changes. Take prescribed antibiotics as directed. Finish the entire course even if your feeling better. Please return in 48-72 hours for wound check to ensure that the areas healing. If any new or worsening symptoms occur including but not limited to worsening pain, swelling, fevers, chills, please return for re-evaluation. Prescriptions: New cephalexin 500 mg capsule 500 mg PO QID 5 Days Qty: 20 0RF doxycycline hyclate 100 mg capsule 100 mg PO BID 5 Days Qty: 10 0RF ibuprofen 600 mg tablet 600 mg PO Q6H PRN (Reason: pain) Qty: 30 0RF No Action alcohol swabs [Alcohol Prep Pads] Pads, Medicated 1 pad topical TID 30 Days Qty: 100 0RF Rx Instructions: test BS 3 times daily (DME) FreeStyle Lite Strips Strip See Rx Instructions .Route Qty: 100 3RF Rx Instructions: test BS 3 times every day (DME) blood-glucose meter [FreeStyle Lite Meter] Kit See Rx Instructions .Route Qty: 1 0RF Rx Instructions: test blood sugar 3 times daily (DME) lancets [FreeStyle Lancets] 28 gauge misc See Rx Instructions .Route Qty: 100 0RF Rx Instructions: test BS 3 times daily irbesartan 75 mg tablet 75 mg PO DAILY 30 Days Qty: 30 3RF ezetimibe 10 mg tablet 10 mg PO DAILY Qty: 90 2RF Synjardy XR 12.5-1,000 mg tablet, IR - ER, biphasic 24hr 2 tab PO DAILY Qty: 90 0RF omeprazole 20 mg capsule,delayed release(DR/EC) 20 mg PO DAILY cyclobenzaprine 10 mg tablet 10 mg PO BEDTIME PRN (Reason: muscle spasm) Qty: 30 0RF bisacodyl [Dulcolax (bisacodyl)] 5 mg tablet,delayed release (DR/EC) 20 mg PO ONCE 1 Days Qty: 4 0RF Rx Instructions: take 4 tabs at noon the day before your colonoscopy polyethylene glycol 3350 [Miralax] 17 gram/dose powder 238 g PO ONCE Qty: 238 0RF Rx Instructions: As directed by gastroenterology department at [facility] Stand Alone Forms: Work/School Release Print Language: Malay
[2023-10-29 14:15] VITALS: BP 123/68; PULSE 81; RESP 20; TEMP 36.8; O2SAT 98
[2023-10-29] MEDS: Lidocaine HCl 1 % MPF 5 ML VIAL INFILTRATI (15:13)
[2023-10-29 15:23] VITALS: BP 174/90; PULSE 83; RESP 20; TEMP 36.7; O2SAT 98
== END 2023-10-29 15:24 | disposition home or self-care (01) ==
PROVIDERS: Emergency Provider Student in an Organized Health Care Education/Training Program; PCP Nurse Practitioner Family
DX: L02.31 Cutaneous abscess of buttock (principal); E11.22 Type 2 diabetes mellitus with diabetic chronic kidney disease; N18.1 Chronic kidney disease, stage 1
CPT/HCPCS: 10060; 99282; 99284

== ENCOUNTER 2023-11-01 09:46 | Emergency (ER) | payer BC, SELFPAY ==
[2023-11-01 09:51] VITALS: BP 141/83; PULSE 80; RESP 18; TEMP 36.4; O2SAT 98; BMI 46.2
== END 2023-11-01 14:11 | disposition left against medical advice (07) ==
PROVIDERS: Emergency Provider Emergency Medicine; PCP Nurse Practitioner Family
DX: M54.50 Low back pain, unspecified (principal)
CPT/HCPCS: 99281

== ENCOUNTER 2024-02-19 20:44 | Emergency (ER) | payer OTHER, BC, SELFPAY ==
--- NOTE | ~2024-02-19 | XR_ITS ---
EXAMINATION: XR FOOT, LEFT CLINICAL INFORMATION: Pain postinjury. COMPARISON: None available. TECHNIQUE: Three views of the left foot. FINDINGS: Large plantar calcaneal spur. No fracture. No dislocation. Joint spaces are normal. XR/XR foot LT min 3V IMPRESSION: 1. No acute abnormality. 2. Large plantar calcaneal spur.
[2024-02-19 20:51] VITALS: BP 126/86; PULSE 92; O2SAT 98
[2024-02-19 21:21] VITALS: BP 114/71; PULSE 83; RESP 16; TEMP 36.1; O2SAT 94; BMI 45.1
[2024-02-20 00:01] VITALS: BP 138/81; PULSE 83; RESP 16; TEMP 36.9; O2SAT 98
--- NOTE | 2024-02-20 03:57 | ED.LOWEXIN ---
HPI - Extremity Injury (Lower) General Chief Complaint: Extremity Injury, Lower Stated Complaint: L ankle injury, stepped on steel grate, swollen Time Seen by Provider: 02/20/24 03:25 Source: patient Mode of arrival: ambulatory Limitations: no limitations History of Present Illness ED Provider: mary STAHL Narrative: Patient apparently was walking into the redding suddenly metal grate fell into the ground patient over flexed his left foot complaining of pain diffusely in the ankle area no other injuries patient able to ambulate Related Data Home Medications ?Medication ?Instructions ?Recorded ?Confirmed omeprazole 20 mg capsule,delayed 20 mg PO DAILY 05/04/21 02/28/23 release Previous Rx's ?Medication ?Instructions ?Recorded alcohol swabs (Alcohol Prep Pads) 1 pad topical TID 30 days #100 ea 04/21/21 blood sugar diagnostic (FreeStyle #100 ea 04/21/21 Lite Strips) blood-glucose meter (FreeStyle #1 ea 04/21/21 Lite Meter kit) lancets 28 gauge (FreeStyle #100 ea 05/19/21 Lancets) irbesartan 75 mg tablet 75 mg PO DAILY 30 days #30 tabs 04/22/22 cyclobenzaprine 10 mg tablet 10 mg PO BEDTIME PRN muscle spasm 02/28/23 #30 tabs bisacodyl 5 mg tablet,delayed 20 mg (4 x 5 mg) PO ONCE 1 day #4 05/08/23 release (Dulcolax (bisacodyl)) tabs polyethylene glycol 3350 17 238 g PO ONCE #238 grams 05/08/23 gram/dose oral powder (Miralax) empagliflozin 12.5 mg-metformin ER 2 tab (2 x 12.5-1,000 mg) PO DAILY 09/23/23 1,000 mg tablet,extended rel 24 hr #90 ea (Synjardy XR) cephalexin 500 mg capsule 500 mg PO QID 5 days #20 caps 10/29/23 doxycycline hyclate 100 mg capsule 100 mg PO BID 5 days #10 caps 10/29/23 ibuprofen 600 mg tablet 600 mg PO Q6H PRN pain #30 tabs 10/29/23 ezetimibe 10 mg tablet 10 mg PO DAILY #90 tabs 02/05/24 ibuprofen 600 mg tablet 600 mg PO Q6H PRN fever or pain 08/06/24 #30 tabs Allergies Allergy/AdvReac Type Severity Reaction Status Date / Time iodine [IODINE] Allergy Intermediate HIVES Verified 02/19/24 21:23 haloperidol [From Haldol] Allergy Unknown Unknown Verified 11/01/23 09:55 shellfish derived Allergy Unknown Shortness Verified 02/19/24 21:23 of Breath sitagliptin [Januvia] Allergy Unknown diarrhea Verified 02/19/24 21:23 hydromorphone [From Dilaudid] Allergy Nausea Verified 02/19/24 21:23 Review of Systems Review of Systems: Yes all other systems are reviewed and are negative [facility] Past Medical History Medical History Retinopathy History of anal fissures Personal history of penetrating abdominal trauma [place] syndrome CKD (chronic kidney disease) stage 1, GFR 90 ml/min or greater Chronic kidney disease Diabetes GERD (gastroesophageal reflux disease) Surgical History Hx of hernia repair Hx of appendectomy Hx of cholecystectomy Hx of ileostomy Social History Social History Housing: House Alcohol intake: never Patient Tobacco Use Status: Never used Tobacco Smoked in Last 30 Days: No e-Cigarette/Vaping Use: Never Used Second Hand Smoke Exposure: Yes Use of substances other than those prescribed or required for medical reasons: No Advance Directives: No Advance Directives Information Provided: Yes service: No Current occupational status: employed 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 Tissue tenderness Achilles tendon intact no deformity or bony tenderness Medications Administered Discontinued Medications Generic Name Dose Route Start Last Admin Trade Name Freq PRN Reason Stop Dose Admin Ibuprofen 600 mg 02/20/24 03:57 02/20/24 04:01 Ibuprofen 600 Mg Tablet PO 02/20/24 03:58 600 mg ONCE ONE Administration Medical Decision Making Medical Decision Making MDM Narrative: Patient has soft tissue injury left foot Luis Eduardo wrap was applied supportive treatment Independent Interpretation I performed an independent interpretation of an: Plain X-Ray Interpretation: Negative for fracture Discharge Plan Discharge Clinical Impression: Ankle sprain and strain Patient Disposition: Home, Self-Care Instructions: Ankle Sprain (ED) Additional Instructions: Rest to your left foot Ibuprofen for pain Use Luis Eduardo wrap to support Prescriptions: New ibuprofen 600 mg tablet 600 mg PO Q6H PRN (Reason: fever or pain) Qty: 30 0RF No Action alcohol swabs [Alcohol Prep Pads] Pads, Medicated 1 pad topical TID 30 Days Qty: 100 0RF Rx Instructions: test BS 3 times daily (DME) FreeStyle Lite Strips Strip See Rx Instructions .Route Qty: 100 3RF Rx Instructions: test BS 3 times every day (DME) blood-glucose meter [FreeStyle Lite Meter] Kit See Rx Instructions .Route Qty: 1 0RF Rx Instructions: test blood sugar 3 times daily (DME) lancets [FreeStyle Lancets] 28 gauge misc See Rx Instructions .Route Qty: 100 0RF Rx Instructions: test BS 3 times daily irbesartan 75 mg tablet 75 mg PO DAILY 30 Days Qty: 30 3RF Synjardy XR 12.5-1,000 mg tablet, IR - ER, biphasic 24hr 2 tab PO DAILY Qty: 90 0RF ezetimibe 10 mg tablet 10 mg PO DAILY Qty: 90 1RF cephalexin 500 mg capsule 500 mg PO QID 5 Days Qty: 20 0RF doxycycline hyclate 100 mg capsule 100 mg PO BID 5 Days Qty: 10 0RF ibuprofen 600 mg tablet 600 mg PO Q6H PRN (Reason: pain) Qty: 30 0RF omeprazole 20 mg capsule,delayed release(DR/EC) 20 mg PO DAILY cyclobenzaprine 10 mg tablet 10 mg PO BEDTIME PRN (Reason: muscle spasm) Qty: 30 0RF bisacodyl [Dulcolax (bisacodyl)] 5 mg tablet,delayed release (DR/EC) 20 mg PO ONCE 1 Days Qty: 4 0RF Rx Instructions: take 4 tabs at noon the day before your colonoscopy polyethylene glycol 3350 [Miralax] 17 gram/dose powder 238 g PO ONCE Qty: 238 0RF Rx Instructions: As directed by gastroenterology department at [facility] Stand Alone Forms: Work/School Release Interventions: ED Discharge Assessment Last Done: 02/20/24 04:11 Discharge Date/Time: 02/20/24 04:11 Print Language: Palauan
[2024-02-20] MEDS: Ibuprofen 600 MG TABLET PO (04:01)
--- NOTE | 2024-02-20 04:09 | MHC.EDTECH ---
This tech applied an jluis wrap to left ankle per 's request,patient tolerated well,rounds and vitals completed
[2024-02-20 04:10] VITALS: BP 147/81; PULSE 74; RESP 18; TEMP 36.8; O2SAT 98
[2024-02-20 04:11] VITALS: BP 147/81; PULSE 74; RESP 18; TEMP 36.8; O2SAT 98
== END 2024-02-20 04:11 | disposition home or self-care (01) ==
PROVIDERS: Emergency Provider Internal Medicine
DX: S93.402A Sprain of unspecified ligament of left ankle, initial encounter (principal); S96.912A Strain of unspecified muscle and tendon at ankle and foot level, left foot, initial encounter; W20.8XXA Other cause of strike by thrown, projected or falling object, initial encounter; Y93.9 Activity, unspecified; Y92.9 Unspecified place or not applicable; Y99.0 Civilian activity done for income or pay; M79.672 Pain in left foot
CPT/HCPCS: 73630; 99283; 99284

== ENCOUNTER 2024-02-28 08:26 | Outpatient (AMB) | payer BC, SELFPAY ==
[2024-02-28 08:27] VITALS: BP 118/72; PULSE 72; O2SAT 97; BMI 45.7
--- NOTE | 2024-02-28 08:27 | MHC.PC.OV ---
Vital Signs 02/28/24 08:27 Height 6 ft 7 in Weight 406 lb BMI 45.7 BP 118/72 Blood Pressure Location Rt brachial Position Sitting Pulse 72 Pulse Source Pulse Oximeter Pulse Oximetry (%) 97 Oxygen Delivery Method Room Air Intake Visit Reasons: F/U DM, HTN Intake Note: pt is here for follow up for DM, HTN. A1c done in office today Chain Pegger Required: No Accompanied by: Self / Same As Patient Allergies iodine [IODINE] Allergy (Intermediate, Verified 02/28/24 08:27) HIVES haloperidol [From Haldol] Allergy (Unknown, Verified 02/28/24 08:27) Unknown shellfish derived Allergy (Unknown, Verified 02/28/24 08:27) Shortness of Breath sitagliptin [Januvia] Allergy (Unknown, Verified 02/28/24 08:27) diarrhea hydromorphone [From Dilaudid] Allergy (Verified 02/28/24 08:27) Nausea Sqcmdao-PXP-VkC Reductase Inhibitor Adverse Reaction (Severe, Verified 02/28/24 08:57) Unknown Medication List - Last Reconciled 02/28/24 by CINDY Neal- alcohol swabs (Alcohol Prep Pads) 1 pad topical TID 30 days bisacodyl (Dulcolax (bisacodyl)) 20 mg (4 x 5 mg) PO ONCE 1 day blood sugar diagnostic (FreeStyle Lite Strips) test BS 3 times every day blood-glucose meter (FreeStyle Lite Meter kit) test blood sugar 3 times daily empagliflozin-metformin 12.5-1,000 mg ER (Synjardy XR) 2 tabs (2 x 12.5-1,000 mg) PO DAILY ezetimibe 10 mg PO DAILY hydrochlorothiazide mg PO ibuprofen 600 mg PO Q6H PRN irbesartan 75 mg PO DAILY 30 days lancets (FreeStyle Lancets) test BS 3 times daily omeprazole 20 mg PO DAILY polyethylene glycol 3350 (Miralax) 238 grams PO ONCE semaglutide (Ozempic) 0.25 mg (0.368 mL) subcut QWEEK Tobacco use date assessed: 10/17/23 Dental Screening Dental Screen Date: 10/17/23 HPI F/U DM, HTN HPI Details Pt is a diabetic, on an ARB. A1C in office today is 7.5. Due for microalbumin, will order. Denies polyuria, polydipsia, and neuropathy. Pt denies any signs and symptoms of hypoglycemia and does know how to correct it. Will start ozempic 0.25mg. Pt will work on his diet. HTN: Blood pressure is stable, managed with hydrochlorothiazide and irbesartan 75mg. Denies shortness of breath, headache, dizziness, and blurred vision. Pt can not tolerate statins. Pt c/o intermittent chest discomfort. He reports some radiation down his left arm, though he reports this is due to a back issue. Will do an EKG in office. Will also order stress test. Pt knows to go to the ER with any worsening symptoms. 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 1. Little interest or pleasure in doing things: not at all 2. Feeling down, depressed, or hopeless: not at all 3. Trouble falling or staying asleep, or sleeping too much: not at all 4. Feeling tired or having little energy: not at all 5. Poor appetite or overeating: not at all 6. Feeling bad about yourself - or that you are a failure or have let yourself or your family down: not at all 7. Trouble concentrating on things, such as reading the newspaper or watching television: not at all 8. Moving or speaking so slowly that other people could have noticed. Or the opposite - being so fidgety or restless that you have been moving around a lot more than usual: not at all 9. Thoughts that you would be better off or of hurting yourself in some way: not at all Total score: 0 Depression Screening Interpretation: Negative Depression Screening Done: Yes 42153 - PHQ-9 Billing: Yes Source: Developed by Drs. Alvaro Miles, Corrie Li, Kailash Madera and colleagues, with an educational glenys from [employer] Thrive Questionnaire Date Thrive assessed: 02/28/24 I am a: Patient What is your living situation today?: I choose not to answer this question Within the past 12 months, did the food you bought not last and you didn't have the money to get more?: I choose not to answer this question Within the past 12 months, did you worry whether your food would run out before you got money to buy more?: I choose not to answer this question Do you have trouble paying for medicines?: I choose not to answer this question Do you have trouble getting transportation to medical appointments?: I choose not to answer this question Do you have trouble paying your heating and electricity bill?: I choose not to answer this question Do you have trouble taking care of your child, family member or friend?: I choose not to answer this question Do you have trouble with day-to-day activities such as bathing, preparing meals, shopping, managing finances, etc.?: I choose not to answer this question Are you currently unemployed and looking for a job?: I choose not to answer this question Are you interested in more education?: I choose not to answer this question Please select the resources that you would like help with: None Currently or been in a relationship where the following occur: I choose not to answer THRIVE Score: 0 AUDIT C Alcohol Use Questionnaire (AUDIT-C) 1. How often do you have a drink containing alcohol?: Never 3. How often do you have six or more drinks on one occasion?: Never Total Score: 0 Score Reviewed/Action Taken: Yes MADDY-7 AMB Questionnaire MADDY-7 Date MADDY - 7 assessed: 02/28/24 Feeling nervous, anxious, or on edge: 0 = Not at all Not being able to stop or control worryin = Not at all Worrying too much about different things: 0 = Not at all Trouble relaxin = Not at all Being so restless that it is hard to sit still: 0 = Not at all Becoming easily annoyed or irritable: 0 = Not at all Feeling afraid as if something awful might happen: 0 = Not at all Total MADDY-7 score (0-4 normal; 5-9 mild; 10-14 moderate; 15-21 severe): 0 Source: Developed by Drs. Alvaro Miles, Corrie Li, Kailash Madera and colleagues, with an educational glenys from [employer] MADDY-7 Assessment Billing MADDY-7 Assessment Tool: MADDY-7 Assessment 95179 Review of Systems Const Reports as per HPI Physical exam (Primary Care) Vital Signs: Last Vital Signs Pulse 72 02/28/24 08:27 BP 118/72 02/28/24 08:27 Pulse Ox 97 02/28/24 08:27 Oxygen Delivery Method Room Air 02/28/24 08:27 BMI result Body Mass Index 45.7 Tobacco/Smoking Status: Tobacco use Status Tobacco use date assessed 10/17/23 02/28/24 08:27 Patient Tobacco Use Status Never used Tobacco 02/28/24 08:27 e-Cigarette/Vaping Use Never Used 02/28/24 08:27 PHQ-9: PHQ-9 Score PHQ-9: Total score 0 02/28/24 08:41 Depression Screening Interpretation: Negative Thrive Assessment: Date of Thrive Assessment Date Thrive assessed 02/28/24 02/28/24 08:29 Currently or been in a relationship where the following occur: I choose not to answer Const General: cooperative Nutritional Appearance: obese morbidly obese Orientation/consciousness: patient oriented x3 Resp Effort & Inspection: normal respiratory effort Auscultation: clear to auscultation bilaterally Cardio Rate: regular rate Rhythm: regular rhythm Heart sounds: S1 normal heart sound present and S2 normal heart sound present Neuro General: patient oriented x3 Extrem Other: bilat feet: + sensation with use of monofilament, feet intact Psych Appearance: grossly normal Mental Status: mental status grossly normal Speech and movement: Normal speech and movement present Affect: normal affect Attitude: cooperative Thought process: Normal thought process present Thought content: Normal thought content present Insight: Good insight present (Psych) Judgement: Good judgement present (Psych) Results AMB Hemoglobin A1c AMB Hemoglobin A1c 7.5 % Last Edit by Vasquez Cortez CMA on 02/28/24 08:49 Assessment and Plan Assessment & Plan (1) HTN (hypertension): Code(s): I10 - Essential (primary) hypertension Plan: Stable, labs ordered (2) Diabetes: Code(s): E11.9 - Type 2 diabetes mellitus without complications Plan: Labs ordered, starting ozempic, pt understands the Side Effects. (3) Chest pain: Code(s): R07.9 - Chest pain, unspecified Plan: any worsening symptoms, ER. Plan The patient agreed to the use of a medical center director for this encounter. Scribed for BHUPENDRA Pettit by Olesya Maldonado medical center director, on 02/28/2024 at 08:35 EST. Orders: Orders Complete Blood Count Auto Diff Today E11.9 - Type 2 diabetes mellitus without complications, I10 - Essential (primary) hypertension Comprehensive [place]. Panel Fast Today E11.9 - Type 2 diabetes mellitus without complications, I10 - Essential (primary) hypertension TSH reflex Free T4 Today E11.9 - Type 2 diabetes mellitus without complications, I10 - Essential (primary) hypertension Microalbumin, Random (w Creat) Today E11.9 - Type 2 diabetes mellitus without complications, I10 - Essential (primary) hypertension AMB Hemoglobin A1c Today Z13.9 - Encounter for screening, unspecified UA CC w/rflx Micro + Cult Today E11.9 - Type 2 diabetes mellitus without complications, I10 - Essential (primary) hypertension Lipid Panel Today E11.9 - Type 2 diabetes mellitus without complications, I10 - Essential (primary) hypertension NM cardiolite stress test Today R07.9 - Chest pain, unspecified CA lexiscan stress w farhad Today R07.9 - Chest pain, unspecified Medications: New semaglutide (Ozempic) for 4 weeks 0.25 mg (0.368 mL) subcut QWEEK 3 mL 0RF Coding Level of Care Code Est Pt Level 3 (78058) Diagnoses HTN (hypertension) I10 Diabetes E11.9 Chest pain R07.9 Additional Codes MADDY-7 Assessment Billing - MADDY-7 Assessment Tool: MADDY-7 Assessment 05630 ([id number])
== END 2024-02-28 12:17 | disposition home or self-care (01) ==
PROVIDERS: PCP Nurse Practitioner Family; Visit Provider Nurse Practitioner Family
DX: I10 Essential (primary) hypertension (principal); E11.9 Type 2 diabetes mellitus without complications; R07.9 Chest pain, unspecified
CPT/HCPCS: 83036; 99213

== ENCOUNTER 2024-09-20 09:35 | Outpatient (REF) | payer BC, SELFPAY ==
--- OUTSIDE RECORDS SUMMARY | 2024-09-20 10:27 | XMS_ITS | Encounter Summary ---
Author Organization [facility] Address [address] [facility] [address] [place] [address] Phone Care Team Providers Care Mds Manager Name Role Phone Silvio Delong NP Primary Care Provider [phone] Encounter Details Date Type Department Care Team (Late Contact Info) Description 01/30/2024 Office Communication [facility] [address] [address] Viktoria Kim ARNP [address] [address] Social History Tobacco Use Types [...] Office Visit [facility] [address] [address] Viktoria Kim ARNP [address] [address] documented as of this encounter Visit Diagnoses Not on filedocumented in this encounter Care Teams Mds Manager Relationship Specialty Start Date End Date Silvio Delong NP [address] [place] [address] PCP - General Nurse Practitioner 10/11/21 documented as of this encounter
--- OUTSIDE RECORDS SUMMARY | 2024-09-20 10:27 | XMS_ITS | Clinical Summary ---
Author Organization [facility] Address [address] [facility] [address] [place] [address] Phone Care Team Providers Care Driller Machine Name Role Phone Silvio Delong NP Primary Care Provider [phone] Allergies Active Allergy Reactions Criticality Noted Date [...] tablet 3 04/08/2024 Active ergocalciferol 1.25 MG (97141 UT) capsuleIndicati ons:Vitamin D deficiency, not otherwise [...] Visit [facility] [address] [address] Viktoria Kim ARNP [address] [address] Health Maintenance Due Date Last [...] Insurance PPO BLUE([id number]) PPO BLUE([id number]) Care Teams Driller Machine Relationship Specialty Start Date End Date Silvio Delong NP [facility] [place] [address] PCP - General Nurse Practitioner 3/28/22
[2024-09-20 13:11] LABS: Appearance Urine Clear; Color Urine Yellow; Glucose Urine UA >=1000 mg/dL (Negative); Leukocyte Esterase Urine Negative (Negative); Nitrite Urine Negative (Negative); PH 5.5 (5.0-9.0); Specific Gravity - Urine >= 1.030 (1.005-1.025); UMIC TRIGGER UACC YES; Urine Blood Negative (Negative); Urine Ketones 15 mg/dL (Negative); Urine Protein Negative (Neg-Trace)
[2024-09-20 13:15] LABS: Bacteria Urine None Seen (None Seen); RBC Urine 0-2 /HPF (0-2); WBC Urine 0-5 /HPF (0-5)
[2024-09-20 13:24] LABS: MANUAL DIFF FLAG NO
[2024-09-20 13:29] LABS: Basophils Absolute Auto 0.1 X10*3/uL (0.0-0.2); Basophils Percent Auto 0.6 % (0-2); Eosinophils Absolute Auto 0.2 X10*3/uL (0.0-0.4); Eosinophils Percent Auto 2.1 % (0-4); Hematocrit 46.4 % (42.0-52.0); Hemoglobin 15.3 g/dl (14.0-18.0); Imm Gran Abs Auto 0.04 X10*3/uL (0.00-0.03); Imm Gran Pct Auto 0.4 % (0.0-0.4); Lymphocytes Absolute Auto 3.5 X10*3/uL (1.2-4.9); Lymphocytes Percent Auto 36.4 % (20-40); Mean Corpuscular Hemoglobin 28.7 pg (27.0-33.0); Mean Corpuscular Volume 87.1 fL (80.0-98.0); Mean Platelet Volume 10.6 fL (9.4-12.4); Monocytes Absolute Auto 0.9 X10*3/uL (0.1-1.2); Monocytes Percent Auto 9.3 % (2-11); Neutrophils Absolute Auto 4.9 x10*3/uL (2.0-8.3); Neutrophils Percent Auto 51.2 % (45-73); Platelet Count 246 X10*3/uL (160-400); Red Blood Count 5.33 X10*6/uL (4.60-5.80); Red Cell Distribution Width 13.6 % (11.0-16.0); White Blood Count 9.6 X10*3/uL (4.8-10.8)
[2024-09-20 13:47] LABS: Estimated Average Glucose 166 mg/dL; Hemoglobin A1c % 7.4 % (<6.0)
[2024-09-20 13:56] LABS: Alanine Aminotransferase 26 U/L (0-40); Alkaline Phosphatase 69 U/L (39-117); Anion Gap 13 (12-20); Aspartate Amino Transferase 31 U/L (5-37); Bilirubin Total 2.5 mg/dL (0.0-1.0); Blood Urea Nitrogen 19 mg/dL (9-16); Calcium 8.8 mg/dL (8.4-10.2); Carbon Dioxide 20 mmol/L (22-29); Chloride 108 mmol/L (96-108); Cholesterol 123 mg/dL (<200); Estimated Glomerular Filt Rate > 60; Glucose Fasting 111 mg/dL (60-99); HDL Cholesterol 47 mg/dL (>40); LDL Cholesterol Calculated 55 mg/dL (<100); Potassium 3.8 mmol/L (3.3-5.1); Sodium 137 mmol/L (135-145); Total Protein 7.5 g/dL (6.5-8.0); Triglycerides 106 mg/dL (<150)
[2024-09-20 14:20] LABS: TSH reflex Free T4 1.51 uIU/mL (0.32-4.0)
[2024-09-20 14:34] LABS: Microalbum/Creatinine Ratio Ur 8.7 ug/mg cr (<30)
== END 2024-09-20 09:36 | disposition home or self-care (01) ==
LOC: HO.HMGCLDS 09:35
PROVIDERS: PCP Nurse Practitioner Family; Visit Provider Nurse Practitioner Family
DX: I10 Essential (primary) hypertension (principal); E11.9 Type 2 diabetes mellitus without complications
CPT/HCPCS: 36415; 80053; 80061; 81001; 82043; 82570; 83036; 84443; 85025

== ENCOUNTER 2024-09-24 08:28 | Outpatient (AMB) | payer BC, SELFPAY ==
[2024-09-24 08:29] VITALS: BP 122/80; PULSE 81; O2SAT 95; BMI 47.3
--- NOTE | 2024-09-24 08:29 | A.OFFPC_ITS ---
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: No Accompanied by: Self / Same As Patient Allergies iodine [IODINE] Allergy (Intermediate, Verified 09/24/24 08:30) HIVES haloperidol [From Haldol] Allergy (Unknown, Verified 09/24/24 08:30) Unknown shellfish derived Allergy (Unknown, Verified 09/24/24 08:30) Shortness of Breath sitagliptin [Januvia] Allergy (Unknown, Verified 09/24/24 08:30) diarrhea hydromorphone [From Dilaudid] Allergy (Verified 09/24/24 08:30) Nausea Cnuzbam-IJM-TfQ Reductase Inhibitor Adverse Reaction (Severe, Verified 09/24/24 08:30) Unknown Medication List - Last Reconciled 09/24/24 by CINDY Neal- alcohol swabs (Alcohol Prep Pads) 1 pad topical TID 30 days blood sugar diagnostic (FreeStyle Lite Strips) test BS 3 times every day blood-glucose meter (FreeStyle Lite Meter kit) test blood sugar 3 times daily empagliflozin-metformin 12.5-1,000 mg ER (Synjardy XR) 2 tabs (2 x 12.5-1,000 mg) PO DAILY ezetimibe 10 mg PO DAILY gabapentin 100 mg PO BID 30 days hydrochlorothiazide 25 mg PO DAILY 90 days ibuprofen 600 mg PO Q6H PRN irbesartan 75 mg PO DAILY 30 days lancets (FreeStyle Lancets) test BS 3 times daily omeprazole 20 mg PO DAILY semaglutide (Ozempic) 0.25 mg (0.368 mL) subcut QWEEK Tobacco use date assessed: 09/24/24 Dental Screening Dental Screen Date: 09/24/24 Did you have a dental visit in the last 12 months?: Yes Did you have a dental problem in the last 6 months where you did not have access to dental care?: No Was dental information given to patient?: Patient has dentist HPI 3m follow up reschedule/ DM HPI Details Chief Complaint The patient reports a hesitance to start prescribed medication for Type 2 Diabetes Mellitus. History of Present Illness The patient is a 49-year-old male presenting with management concerns related to Type 2 Diabetes Mellitus. His glycated hemoglobin level is 7.4%, indicative of requiring medical intervention. I previously prescribed Ozempic to aid metabolic control, which the patient has not initiated due to apprehension regarding potential side effects, specifically unwanted weight loss. He expresses a fear of becoming overly thin thoruhgout his face. Additionally, the patient reports progressive symptoms of diabetic neuropathy, characterized by dulled sensation in the feet, particularly affecting the right side. This presentation aligns with the prescribed use of gabapentin for neuropathic complications. His longstanding discoloration points to chronic venous changes, with no acute progression reported. Pt reports his eye exam is up to date Social History - Grossly obese, indicating limited phys ical activity or potential barriers to weight management. Health Maintenance - Discussed benefits and side effects of Ozempic for glycemic control and potential weight management. Review of Systems - Neurological: Reports dulled sensation bilaterally in feet, worse on the right. Physical Exam General: Cooperative, healthy appearing, comfortable, no acute distress and well developed, grossly obese Orientation: Patient oriented x3 Limitations: No limitations Head: Normal to inspection Ears: Hearing grossly normal bilaterally Nose: Normal external nose present Face and sinus: Normal facial exam Eyes: Appearance normal, both eyes and all related structures Neck: Normal visual inspection and Yes full ROM Respiratory: Normal respiratory effort and able to speak in complete sentences. Clear to auscultation bilaterally Cardiovascular: Regular rate and rhythm. Normal S1 and S2 GI: Normal to inspection. Soft to palpation and nontender Skin: discoloration to medial left ankle distal leg region, hemocidrin staining noted to right lower extremity Neuro: Patient oriented x3, reports some neuropathy, sensation dulled bilaterally mostly to the right side (using monofilament), feet intact bilat Extremities: Normal to inspection, feet intact Results - Labs: A1c level at 7.4%. Plan For the patient's Type 2 Diabetes Mellitus, I advised starting Ozempic after discussing the advantages, aiming for improved blood sugar levels and possible weight benefit. Gabapentin was prescribed for his neuropathic symptoms. Reevaluation is scheduled in four months to assess therapeutic outcome and necessity for adjustments. Obesity management was also discussed as part of comprehensive care. Discussion Notes I reviewed with the patient the importance of beginning Ozempic for his diabetes control, highlighting its effects on blood glucose stabilization and weight. He was informed about the prospects and side effects, and his hesitations were carefully addressed. For neuropathy, the potential benefit of gabapentin was explained. Follow-up in four months is planned to assess efficacy and address any concerns. I reinforced lifestyle changes pertinent to obesity management, including discussions around diet and moderate exercise. Patient Instructions - Begin taking Ozempic as prescribed and monitor for any side effects. - Start gabapentin for neuropathy as dir ected. - Focus on maintaining a healthy diet an d physical activity. - Return in four months for follow-up ev aluation. - Contact if experiencing any new or wor sening symptoms. 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 1. Little interest or pleasure in doing things: not at all 2. Feeling down, depressed, or hopeless: not at all 3. Trouble falling or staying asleep, or sleeping too much: not at all 4. Feeling tired or having little energy: not at all 5. Poor appetite or overeating: not at all 6. Feeling bad about yourself - or that you are a failure or have let yourself or your family down: not at all 7. Trouble concentrating on things, such as reading the newspaper or watching television: not at all 8. Moving or speaking so slowly that other people could have noticed. Or the opposite - being so fidgety or restless that you have been moving around a lot more than usual: not at all 9. Thoughts that you would be better off or of hurting yourself in some way: not at all Total score: 0 Depression Screening Interpretation: Negative Depression Screening Done: Yes 40326 - PHQ-9 Billing: Yes Source: Developed by Drs. Alvaro Miles, Corrie Li, Kailash Madera and colleagues, with an educational glenys from [employer]. Thrive Questionnaire Date Thrive assessed: 09/24/24 I am a: Patient What is your living situation today?: I have a steady place to live Within the past 12 months, did the food you bought not last and you didn't have the money to get more?: I choose not to answer this question Within the past 12 months, did you worry whether your food would run out before you got money to buy more?: I choose not to answer this question Do you have trouble paying for medicines?: I choose not to answer this question Do you have trouble getting transportation to medical appointments?: I choose not to answer this question Do you have trouble paying your heating and electricity bill?: I choose not to answer this question Do you have trouble taking care of your child, family member or friend?: I choose not to answer this question Do you have trouble with day-to-day activities such as bathing, preparing meals, shopping, managing finances, etc.?: I choose not to answer this question Are you currently unemployed and looking for a job?: I choose not to answer this question Are you interested in more education?: I choose not to answer this question Please select the resources that you would like help with: None Currently or been in a relationship where the following occur: I choose not to answer THRIVE Score: 0 AUDIT C Alcohol Use Questionnaire (AUDIT-C) 1. How often do you have a drink containing alcohol?: Never 3. How often do you have six or more drinks on one occasion?: Never Total Score: 0 Score Reviewed/Action Taken: Yes MADDY-7 AMB Questionnaire MADDY-7 Date MADDY - 7 assessed: 09/24/24 Feeling nervous, anxious, or on edge: 3 = Nearly every day Not being able to stop or control worryin = More than half the days Worrying too much about different things: 3 = Nearly every day Trouble relaxin = Nearly every day Being so restless that it is hard to sit still: 2 = More than half the days Becoming easily annoyed or irritable: 3 = Nearly every day Feeling afraid as if something awful might happen: 2 = More than half the days Total MADDY-7 score (0-4 normal; 5-9 mild; 10-14 moderate; 15-21 severe): 18 Source: Developed by Drs. Alvaro Miles, Corrie Li, Kailash Madera and colleagues, with an educational glenys from [employer]. MADDY-7 Assessment Billing MADDY-7 Assessment Tool: MADDY-7 Assessment 80906 (denies any SI or HI, appears very anxious about starting ozempic, though re-educated pt on med use) Physical exam (Primary Care) Vital Signs: Last Vital Signs Pulse 81 09/24/24 08:29 BP 122/80 09/24/24 08:29 Pulse Ox 95 09/24/24 08:29 Oxygen Delivery Method Room Air 09/24/24 08:29 BMI result Body Mass Index 47.3 Tobacco/Smoking Status: Tobacco use Status Tobacco use date assessed 09/24/24 09/24/24 08:31 Patient Tobacco Use Status Never used Tobacco 09/24/24 08:31 e-Cigarette/Vaping Use Never Used 09/24/24 08:31 PHQ-9: PHQ-9 Score PHQ-9: Total score 0 09/24/24 08:56 Depression Screening Interpretation: Negative Thrive Assessment: Date of Thrive Assessment Date Thrive assessed 09/24/24 09/24/24 08:31 Currently or been in a relationship where the following occur: I choose not to answer Coding Level of Care Code Est Pt Level 3 (59559) Diagnoses Diabetes E11.9 Neuropathy G62.9 Additional Codes PHQ-9 - 22702 - PHQ-9 Billing: Yes ([id number]) MADDY-7 Assessment Billing - MADDY-7 Assessment Tool: MADDY-7 Assessment 89214 ([id number]) Assessment & Plan Assessment & Plan (1) Diabetes: Code(s): E11.9 - Type 2 diabetes mellitus without complications Category: Medical (2) Neuropathy: Code(s): G62.9 - Polyneuropathy, unspecified Category: Medical Plan . Medications: New gabapentin 100 mg PO BID 60 caps 0RF 30 days
--- OUTSIDE RECORDS SUMMARY | 2024-09-24 09:10 | XMS_ITS | Encounter Summary ---
Author Organization [facility] Address [address] [facility] [address] [place] [address] Phone Care Team Providers Care Information Technology Internship Name Role Phone Silvio Delong NP Primary Care Provider [phone] Encounter Details Date Type Department Care Team (Late Contact Info) Description 01/30/2024 Office Communication [facility] [address] [address] Viktoria Kim ARNP [address] [address] Social History Tobacco Use Types [...] Office Visit [facility] [address] [address] Viktoria Kim ARNP [address] [address] documented as of this encounter Visit Diagnoses Not on filedocumented in this encounter Care Teams Information Technology Internship Relationship Specialty Start Date End Date Silvio Delong NP [address] [place] [address] PCP - General Nurse Practitioner 10/11/21 documented as of this encounter
--- OUTSIDE RECORDS SUMMARY | 2024-09-24 09:10 | XMS_ITS | Clinical Summary ---
Author Organization [facility] Address [address] [facility] [address] [place] [address] Phone Care Team Providers Care Hand Plate Stacker Name Role Phone Silvio Delong NP Primary Care Provider [phone] Allergies Active Allergy Reactions Criticality Noted Date [...] tablet 3 04/08/2024 Active ergocalciferol 1.25 MG (88797 UT) capsuleIndicati ons:Vitamin D deficiency, not otherwise [...] Visit [facility] [address] [address] Viktoria Kim ARNP [address] [address] Health Maintenance Due Date Last [...] Insurance PPO BLUE([id number]) PPO BLUE([id number]) Care Teams Hand Plate Stacker Relationship Specialty Start Date End Date Silvio Delong NP [place] [address] PCP - General Nurse Practitioner 3/28/22
== END 2024-09-24 10:21 | disposition home or self-care (01) ==
LOC: HO.HMCC 08:29
PROVIDERS: PCP Nurse Practitioner Family; Visit Provider Nurse Practitioner Family
DX: E11.42 Type 2 diabetes mellitus with diabetic polyneuropathy (principal); G62.9 Polyneuropathy, unspecified

== ENCOUNTER → 2024-09-24 08:28 | Outpatient (BNVA) | payer BC, SELFPAY | PROVIDERS: PCP Nurse Practitioner Family; Visit Provider Nurse Practitioner Family | DX: E11.40 Type 2 diabetes mellitus with diabetic neuropathy, unspecified (principal) | CPT/HCPCS: 96127 ==

== ENCOUNTER 2024-09-27 09:25 | Day surgery (SDC) | payer BC, SELFPAY ==
--- OUTSIDE RECORDS SUMMARY | 2024-09-13 11:41 | XMS_ITS | Clinical Summary ---
Author Organization [facility] Address [address] [facility] [address] [place] [address] Phone Care Team Providers Care Summer Law Associate Name Role Phone Silvio Delong NP Primary Care Provider [phone] Allergies Active Allergy Reactions Criticality Noted Date Comments Haloperidol 06/24/2014 Other reaction(s): hallucinations Hallucination Medications omeprazole OTC (PriLOSEC OTC) 20 MG EC tablet Take 20 mg by mouth 11/05/2020 Active ezetimibe (ZETIA) 10 MG tablet Take 10 mg by mouth 1 (one) time each day Active Empagliflozin-m etFORMIN HCl ER (Synjardy XR) 12.5-1000 MG tablet sustained-relea se 24 hourIndications :Hypertension,P roteinuria, not otherwise specified,Type 2 diabetes mellitus with diabetic chronic kidney disease (HCC) Take 2 tablets by mouth 1 (one) time each day 180 tablet 3 10/05/2023 5 Active hydroCHLOROthia zide 25 MG tabletIndicatio ns:Hypertension ,Bilateral lower leg edema Take 1 tablet (25 mg total) by mouth 1 (one) time each day 30 tablet 11 01/30/2024 5 Active irbesartan (AVAPRO) 75 MG tablet Take 2 tablets (150 mg total) by mouth 1 (one) time each day 90 tablet 3 04/08/2024 Active ergocalciferol 1.25 MG (60786 UT) capsuleIndicati ons:Vitamin D deficiency, not otherwise specified TAKE 1 CAPSULE BY MOUTH 1 TIME EVERY WEEK 12 capsule 1 05/27/2024 Active Active Problems Problem Noted Date Diagnosed Date Hypertension 05/05/2024 Bilateral lower leg edema 05/05/2024 Vitamin D deficiency, not otherwise specified Stage 1 chronic kidney disease 10/25/2021 Type 2 diabetes mellitus wit h diabetic chronic kidney disease 10/25/2021 Gilbert syndrome 10/21/2021 H/O Spinal surgery 10/21/2021 Incisional hernia 10/21/2021 Morbid obesity 10/21/2021 Type 2 diabetes mellitus in obese 10/21/2021 Family History Medical History Relation Comments Cancer Mother Diabetes Mother Hypertension Mother Kidney disease Mother Relation Status Comments Mother Social History Tobacco Use Types Packs/Day Years Used Date Smoking Tobacco: Never Smokeless Tobacco: Never Tobacco Cessation:Counseling Given: Not Answered Alcohol Use Standard Drinks/Week Comments Yes 0 (1 standard drink = 0.6 oz pur e alcohol) Sex and Gender Information Value Date Recorded Sex Assigned at Not on file Legal Sex Male 2:33 PM EDT Gender Identity Not on file Sexual Orientation Not on file Last Filed Vital Signs Vital Sign Reading Time Taken Comments Blood Pressure 120/80 05/01/2024 11:05 AM EDT Pulse 88 05/01/2024 10:29 AM EDT Temperature - - Respiratory Rate - - Oxygen Saturation 97% 12/05/2023 7:50 AM EDT Inhaled Oxygen Concentration - - Weight 186 kg (411 lb 1.6 oz) 05/01/2024 10:29 A M EDT Height 200.7 cm (6' 7 ) 10/25/2021 4:35 PM EDT Body Mass Index 46.31 10/25/2021 4:35 PM EDT Plan of Treatment Upcoming Encounters Date Type Department Care Team (Late st Contact Info) Description 10/30/2024 8:00 AM EDT Office Visit [facility] [address] [address] Viktoria Kim ARNP [address] [address] Health Maintenance Due Date Last Done Comments Pneumococcal Vaccine: Pediat rics (0 to 5 Years) and At-Risk Patients (6 to 64 Years) (1 of 2 - PCV) 1980 Hepatitis B Vaccine (1 of 3 - 19+ 3-dose series) 03/12 Diabetes: Hemoglobin A1C 10/11/2021 Diabetes: Ophthalmology Exam 10/11/2021 Diabetes: Pedal Pulse Checked 10/11/2021 Diabetes: Sensory Foot Exam 10/11/2021 Diabetes: Visual Foot Exam 10/11/2021 Colorectal Cancer Screening: Annual FOBT 2023 Colorectal Cancer Screening: Colonoscopy 2023 Colorectal Cancer Screening: Sigmoidoscopy 2023 Influenza Vaccine (#1) 2024 Insurance PPO BLUE([id number]) PPO BLUE([id number]) Care Teams Summer Law Associate Relationship Specialty Start Date End Date Silvio Delong [place] [address] PCP - General Nurse Practitioner 3/28/22
--- OUTSIDE RECORDS SUMMARY | 2024-09-13 11:41 | XMS_ITS | Encounter Summary ---
Author Organization [facility] Address [address] [facility] [address] [place] [address] Phone Care Team Providers Care Director Of Oncology Name Role Phone Silvio Delong NP Primary Care Provider [phone] Encounter Details Date Type Department Care Team (Late Contact Info) Description 01/30/2024 Office Communication [facility] [address] [address] Viktoria Kim ARNP [address] [address] Social History Tobacco Use Types Packs/Day Years Used Date Smoking Tobacco: Never Smokeless Tobacco: Never Alcohol Use Standard Drinks/Week Comments Yes 0 (1 standard drink = 0.6 oz pur e alcohol) Sex and Gender Information Value Date Recorded Sex Assigned at Not on file Legal Sex Male 2:33 PM EDT Gender Identity Not on file Sexual Orientation Not on file documented as of this encounter Plan of Treatment Upcoming Encounters Date Type Department Care Team (Late Contact Info) Description 10/30/2024 8:00 AM EDT Office Visit [facility] [address] [address] Viktoria Kim ARNP [address] [address] documented as of this encounter Visit Diagnoses Not on filedocumented in this encounter Care Teams Director Of Oncology Relationship Specialty Start Date End Date Silvio Delong NP [address] [place] [address] PCP - General Nurse Practitioner 10/11/21 documented as of this encounter
--- NOTE | 2024-09-26 08:58 | P.CONAN_ITS ---
Documented by User: Sabrina Cross NP 09/26/24 08:59 HPI - Anesthesia Eval Consult details Narrative: 49yo M for Colonoscopy Anesthesia Pre-Procedure Meds Is the patient on any of the following meds?: GLP1/DPP4 and SGLT2 Inhib PMFSH Active Problems Active Problems: All Active Problems Neuropathy (Acute) Chest pain (Acute) Screening for colon cancer (Acute) Fatigue (Acute) Microalbuminuria (Acute) HTN (hypertension) (Acute) UTI (urinary tract infection) (Acute) Diabetes (Acute) Newly diagnosed diabetes (Acute) Past Medical History Medical History Retinopathy History of anal fissures Personal history of penetrating abdominal trauma [place] syndrome CKD (chronic kidney disease) stage 1, GFR 90 ml/min or greater Chronic kidney disease Diabetes GERD (gastroesophageal reflux disease) Surgical History Surgical History Hx of hernia repair Hx of appendectomy Hx of cholecystectomy Hx of ileostomy Social History Social History Housing: House Are you a primary hearing healthcare practitioner to a significant other at home: No Do you presently have visiting nurse or other home services: No Alcohol intake: never Patient Tobacco Use Status: Never used Tobacco e-Cigarette/Vaping Use: Never Used Second Hand Smoke Exposure: Yes Have you been hit, kicked, punched, or otherwise hurt by someone within the past year? 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 Current occupational exposures/hazards: No Cognitive needs: No Hearing needs: No Vision needs: No Meds Allergies Allergy/AdvReac Type Severity Reaction Status Date / Time iodine [IODINE] Allergy Intermediate HIVES Verified 09/27/24 10:22 haloperidol [From Haldol] Allergy Unknown Unknown Verified 09/27/24 10:22 shellfish derived Allergy Unknown Shortness Verified 09/27/24 10:22 of Breath sitagliptin [Januvia] Allergy Unknown diarrhea Verified 09/27/24 10:22 hydromorphone [From Dilaudid] Allergy Nausea Verified 09/27/24 10:22 Zhuawmr-BEE-BeD Reductase AdvReac Severe Unknown Verified 09/27/24 10:22 Inhibitor Assessment and Plan Assessment Anesthesia Assessment: Chart Reviewed Documented by User: Raina Torres MD 09/27/24 11:45 HPI - Anesthesia Eval Anesthesia Pre-Procedure Meds Is the patient on any of the following meds?: SGLT2 Inhib (Last dose of Synjardy 09/23/24) If yes to any meds - educate patient: Pt education - increased risk of aspiration and/or euvolemic DKA PMFSH Active Problems Active Problems: All Active Problems Neuropathy (Acute) Chest pain (Acute) Screening for colon cancer (Acute) Fatigue (Acute) Microalbuminuria (Acute) HTN (hypertension) (Acute) UTI (urinary tract infection) (Acute) Diabetes (Acute) Newly diagnosed diabetes (Acute) Denies DARBY Past Medical History Medical History Retinopathy History of anal fissures Personal history of penetrating abdominal trauma [place] syndrome CKD (chronic kidney disease) stage 1, GFR 90 ml/min or greater Chronic kidney disease Diabetes GERD (gastroesophageal reflux disease) Family History Family history of problems with anesthesia: No Surgical History Surgical History Hx of hernia repair Hx of appendectomy Hx of cholecystectomy Hx of ileostomy History of Problems with Anesthesia: No Social History Social History Housing: House Are you a primary hearing healthcare practitioner to a significant other at home: No Do you presently have visiting nurse or other home services: No Alcohol intake: never Patient Tobacco Use Status: Never used Tobacco e-Cigarette/Vaping Use: Never Used Second Hand Smoke Exposure: Yes Have you been hit, kicked, punched, or otherwise hurt by someone within the past year? 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 Current occupational exposures/hazards: No Cognitive needs: No Hearing needs: No Vision needs: No Meds Allergies Allergy/AdvReac Type Severity Reaction Status Date / Time iodine [IODINE] Allergy Intermediate HIVES Verified 09/27/24 10:22 haloperidol [From Haldol] Allergy Unknown Unknown Verified 09/27/24 10:22 shellfish derived Allergy Unknown Shortness Verified 09/27/24 10:22 of Breath sitagliptin [Januvia] Allergy Unknown diarrhea Verified 09/27/24 10:22 hydromorphone [From Dilaudid] Allergy Nausea Verified 09/27/24 10:22 Vkqypba-CGR-DlV Reductase AdvReac Severe Unknown Verified 09/27/24 10:22 Inhibitor Exam Height,Weight and Vital Signs: Height 6 ft 6 in Weight 186.3 kg Vital Signs Temp Pulse Resp BP Pulse Ox O2 Del Method 09/27/24 10:56 98.1 F 79 18 158/82 H 96 Room Air Pertinent Lab Results Pertinent Lab Results: Lab Results 09/27/24 Range/Units 10:33 POC Glucose 118 H (60-115) mg/dL Airway Mallampati Class: II TM Dist: >3cm Neck ROM: Full Loose/Missing/Broken Teeth: Yes (Missing some teeth. Denies broken or loose teeth) Heart: RRR Lungs: CTAB Assessment and Plan Assessment Anesthesia Assessment: Anesthesia Plan Discussed and Chart Reviewed Final Anesthetic Review Family History of Problems with Anesthesia: No History of Problems with Anesthesia: No NPO: Yes ASA Class: III Final Preanesthetic Review: No Changes in Pt Med Stat, Meds/Allgs Chart Reviewed, Consent Obtained/Reviewed and Anes Risks/Benef Reviewed Patient Risk: Intermediate Procedure Risk: Low Assessment/Block/Sedation in SS: Assess/Block/Sedation-SS Anesthetic Plan Anesthetic Plan: GA Disposition: Standard PACU
[2024-09-27 10:20] VITALS: BMI 47.5
[2024-09-27] MEDS: Lactated Ringers 1,000 ML 100 ML IVCONT (10:31)
[2024-09-27 10:40] LABS: Glucose, Whole Blood 118 mg/dL (60-115)
--- NOTE | 2024-09-27 10:48 | MHC.SHP ---
Pre-Procedural Eval Section A - 24 Hr Update-Section A only Date of Service: 09/27/24 The patient is an INPATIENT: No The patient has been examined within 24 hours of the surgical procedure. The History & Physical has been completed within 30 days and I have reviewed it.: No Section B - Complete if H&P > 30 days Chief Complaint: Colon cancer screening Relevant Family History (Specify if Yes): No Relevant Social History: None Present Medications: see Short Stay Collaborative assessment Medical History: Significant History (History of anal fissures Personal history of penetrating abdominal trauma [place] syndrome CKD (chronic kidney disease) stage 1, GFR 90 ml/min or greater Chronic kidney disease Diabetes GERD (gastroesophageal reflux disease)) History of Previous Operations: Relevant previous surgery/procedure and date(s) (Hx of hernia repair Hx of appendectomy Hx of cholecystectomy Hx of ileostomy) Allergies: Allergies Allergy/AdvReac Type Severity Reaction Status Date / Time iodine [IODINE] Allergy Intermediate HIVES Verified 09/27/24 10:22 haloperidol [From Haldol] Allergy Unknown Unknown Verified 09/27/24 10:22 shellfish derived Allergy Unknown Shortness Verified 09/27/24 10:22 of Breath sitagliptin [Januvia] Allergy Unknown diarrhea Verified 09/27/24 10:22 hydromorphone [From Dilaudid] Allergy Nausea Verified 09/27/24 10:22 Bilzmuh-GQF-DzP Reductase AdvReac Severe Unknown Verified 09/27/24 10:22 Inhibitor Review of Systems Sugical H&P ROS: Negative: Cardiovascular, Respiratory and Gastrointestinal and Yes, Specify: Constitution (Morbidly obese) Exam Surgical H&P Exam: Normal: Heart, Normal: Lungs, Normal: Extremities and Normal: Abdomen Plan Diagnosis/Plan: Unchanged I have reviewed the history and physical and performed a pertinent physical examination on my patient. No changes have occurred unless specified. Time Spent With Patient Time: Total time managing care of this patient today ____ minutes.
[2024-09-27 10:56] VITALS: BP 158/82; PULSE 79; RESP 18; TEMP 36.7; O2SAT 96
--- NOTE | 2024-09-27 12:33 | P.OPN-COLO_ITS ---
Colonoscopy Operative Note Operative Note Date of Service: 09/27/24 Narrative: COLONOSCOPY TILL CECUM Pre-op diagnosis: Colon cancer screening. Post-op diagnosis:? Diverticulosis, hemorrhoids Endoscopist:? Wyatt Ruby MD Anesthesia: GA with ET tube Consent: Indications for the procedure and potential complications of bleeding, perforation, reaction to medications and missed diagnosis were discussed with the patient and informed consent was obtained. Instrument: Olympus CF H 190 L variable stiffness adult colonoscope Monitoring: Vital signs and clinical assessment, intermittent blood pressure monitoring, continuous EKG monitoring, Pulse oximetry and Carbon Dioxide monitoring were done throughout the procedure. Please see anesthesia flowsheet. Colon withdrawl time was 17 minutes. Procedure: The patient was placed in the left lateral decubitis position and pre-procedure medications were administered. After a digital rectal examination of the ano-rectum, the video colonoscope was inserted into the rectum and advanced through the colon to the cecum. The colonoscope was slowly withdrawn in a retrograde panoramic fashion and the colon mucosa was carefully examined including a retroflexed view of the rectum. Findings and interventions are described below. Procedure Difficulty: Without difficulty Findings: Terminal Ileum: Not evaluated Cecum: Normal Ascending Colon: Normal Transverse Colon: Normal Descending Colon: Normal Sigmoid Colon: Moderate diverticulosis Rectum: Normal Ano-rectum: Small internal hemorrhoids Colon preparation: Good after copious irrigation. [place] Bowel Preparation Scale Right colon; 2 Transverse colon: 2 Left colon; 2 (0 = Unprepared colon segment with mucosa not seen due to solid stool that cannot be cleared. 1 = Portion of mucosa of the colon segment seen, but other areas of the colon segment not well seen due to staining, residual stool and/or opaque liquid. 2 = Minor amount of residual staining, small fragments of stool and/or opaque liquid, but mucosa of colon segment seen well. 3 = Entire mucosa of colon segment seen well with no residual staining, small fragments of stool or opaque liquid) Impression and Post Procedure Diagnosis: Colonoscopy Findings: No polyps were detected Moderate diverticulosis seen in the sigmoid colon Small hemorrhoids on retroflexed exam. Plan: Repeat Colonoscopy in 10 years (earlier if pt has a change in bowel habits or rectal bleeding) - patient was placed on the colonoscopy recall list. Above findings were reviewed with the patient and relevant handouts were given and the discharge area.
[2024-09-27 12:36] VITALS: BP 173/91; PULSE 98; RESP 18; TEMP 36.3; O2SAT 97
[2024-09-27 12:50] VITALS: BP 157/92; PULSE 82; RESP 18; O2SAT 100
== END 2024-09-27 13:38 | disposition home or self-care (01) ==
PROVIDERS: PCP Nurse Practitioner Family; Visit Provider Internal Medicine Gastroenterology
PROC: 0DJD8ZZ Inspection of Lower Intestinal Tract, Via Natural or Artificial Opening Endoscopic (ICD-10-PCS; CPT 45378; principal; 2024-09-27 11:40)
DX: Z12.11 Encounter for screening for malignant neoplasm of colon (principal); K57.30 Diverticulosis of large intestine without perforation or abscess without bleeding; K64.8 Other hemorrhoids; E11.22 Type 2 diabetes mellitus with diabetic chronic kidney disease; N18.1 Chronic kidney disease, stage 1; E80.4 Gilbert syndrome; K21.9 Gastro-esophageal reflux disease without esophagitis; Z91.041 Radiographic dye allergy status; E66.01 Morbid (severe) obesity due to excess calories; Z68.42 Body mass index [BMI] 45.0-49.9, adult; H35.00 Unspecified background retinopathy; Z90.49 Acquired absence of other specified parts of digestive tract; Z79.1 Long term (current) use of non-steroidal anti-inflammatories (NSAID); Z79.84 Long term (current) use of oral hypoglycemic drugs; Z79.899 Other long term (current) drug therapy; Z87.828 Personal history of other (healed) physical injury and trauma; Z88.8 Allergy status to other drugs, medicaments and biological substances; Z79.85 Long-term (current) use of injectable non-insulin antidiabetic drugs; Z98.890 Other specified postprocedural states
CPT/HCPCS: 45378; 82947; J0330; J2003; J2405; J2704; J3010

== ENCOUNTER → 2024-09-27 09:25 | Outpatient (BNV) | payer BC, SELFPAY | PROVIDERS: PCP Nurse Practitioner Family; Visit Provider Internal Medicine Gastroenterology | DX: Z12.11 Encounter for screening for malignant neoplasm of colon (principal); K57.30 Diverticulosis of large intestine without perforation or abscess without bleeding; K64.8 Other hemorrhoids | CPT/HCPCS: 45378 ==

== ENCOUNTER 2025-01-07 10:21 | Outpatient (AMB) | payer BC, SELFPAY ==
--- NOTE | 2025-01-07 10:26 | A.OFFPC_ITS ---
Vital Signs 01/07/25 10:29 Height 6 ft 6 in Weight 400 lb BMI 46.2 BP 128/72 Blood Pressure Location Lt brachial Position Sitting Respiration 17 Pulse 78 Pulse Source Pulse Oximeter Temp 98.2 F Temp Source Oral Pulse Oximetry (%) 97 Oxygen Delivery Method Room Air Intake Visit Reasons: Follow - Up DM/Labs Intake Note: Pt is here today for his DM f/u Allergies iodine (IODINE) Allergy (Intermediate, Verified 01/07/25 10:57) HIVES haloperidol (From Haldol) Allergy (Unknown, Verified 01/07/25 10:57) Unknown shellfish derived Allergy (Unknown, Verified 01/07/25 10:57) Shortness of Breath sitagliptin (Januvia) Allergy (Unknown, Verified 01/07/25 10:57) diarrhea hydromorphone (From Dilaudid) Allergy (Verified 01/07/25 10:57) Nausea Oienpxb-SQK-JnG Reductase Inhibitor Adverse Reaction (Severe, Verified 01/07/25 10:57) Unknown Medication List - Last Reconciled 01/07/25 by CINDY Neal- alcohol swabs (Alcohol Prep Pads) 1 pad topical TID 30 days blood sugar diagnostic (FreeStyle Lite Strips) test BS 3 times every day blood-glucose meter (FreeStyle Lite Meter kit) test blood sugar 3 times daily cyclobenzaprine 5 mg PO BEDTIME PRN empagliflozin-metformin 12.5-1,000 mg ER (Synjardy XR) 2 tabs (2 x 12.5-1,000 mg) PO DAILY ezetimibe 10 mg PO DAILY gabapentin 100 mg PO BID 30 days ibuprofen 600 mg PO Q6H PRN irbesartan 75 mg PO DAILY 30 days lancets (FreeStyle Lancets) test BS 3 times daily omeprazole 20 mg PO DAILY semaglutide 1 mg (0.75 mL) subcut QWEEK Tobacco use date assessed: 09/24/24 Dental Screening Dental Screen Date: 01/07/25 Did you have a dental visit in the last 12 months?: No Did you have a dental problem in the last 6 months where you did not have access to dental care?: No Was dental information given to patient?: Patient declined HPI Follow - Up DM/Labs HPI Details Chief Complaint The patient reports bilateral ankle discoloration and fatigue. History of Present Illness The patient is a 49-year-old male presenting with management of Type 2 Diabetes Mellitus and evaluation of venous insufficiency symptoms. The patient has a history of Type 2 Diabetes Mellitus, with a current HbA1c of 6.5%. He reports that his eye exams are up to date and denies neuropathy, polyuria, or polydipsia. He uses a monofilament for foot care. The patient reports bilateral ankle discoloration, more pronounced on the left, which began over 20 years ago following a bump on a stair. The discoloration is described as echymotic and erythematous, with some swelling and tenderness upon touch. The physician suspects a venous issue and plans to conduct venous testing. The patient also reports extensive fatigue, which he attributes to working the third shift. He has a history of obstructive sleep apnea, previously diagnosed through a sleep study, but he discontinued CPAP use due to discomfort. The physician plans to order another sleep study to reassess the condition. The patient is morbidly obese but has been attempting weight loss. The physician encourages continued weight loss efforts. Social History - Employment: Works the third shift, con tributing to fatigue Health Maintenance - Eye exams are up to date for diabetes management - Encouraged weight loss for obesity man agement Review of Systems - Endocrine: Denies polyuria, polydipsia - Dermatological: Reports bilateral ankl e discoloration, more pronounced on the left - Neurological: Reports extensive fatigu e Physical Exam General: Cooperative, healthy appearing, comfortable, no acute distress and well developed, morbidly obese Orientation: Patient oriented x3 Limitations: No limitations Head: Normal to inspection Ears: Hearing grossly normal bilaterally Nose: Normal external nose present Face and sinus: Normal facial exam Eyes: Appearance normal, both eyes and all related structures Neck: Normal visual inspection and Yes full ROM Respiratory: Normal respiratory effort and able to speak in complete sentences. Clear to auscultation bilaterally Cardiovascular: Regular rate and rhythm. Normal S1 and S2 GI: Normal to inspection. Soft to palpation and nontender Neuro: Patient oriented x3 Extremities: Darker discoloration of bilateral ankles, mostly to the left. More ecchymotic and erythematous, kind of swollen. Some tenderness with touch to the region. Normal to inspection otherwise. + sensation to feet bilat Results - Labs: HbA1c 6.5% Plan The patient will undergo venous testing to assess the discoloration and swelling of the ankles, which is suspected to be due to venous insufficiency. A sleep study will be ordered to evaluate the patient's obstructive sleep apnea, with consideration for reintroducing CPAP therapy. The patient is encouraged to continue weight loss efforts to manage morbid obesity, which may also improve his sleep apnea symptoms. Discussion Notes I discussed with the patient the need for venous testing to evaluate the discoloration and swelling of his ankles, which may be due to venous insufficiency. We also talked about the importance of a sleep study to reassess his obstructive sleep apnea and the potential benefits of retrying CPAP therapy. I emphasized the significance of weight loss in managing his obesity and potentially improving his sleep apnea symptoms. Patient Instructions - Schedule and complete venous testing f or ankle discoloration. - Arrange for a sleep study to reassess sleep apnea. - Continue efforts to lose weight to hel p manage obesity and improve sleep. REPLACED BY [facility] Medical History Retinopathy History of anal fissures Personal history of penetrating abdominal trauma [place] syndrome CKD (chronic kidney disease) stage 1, GFR 90 ml/min or greater Chronic kidney disease Diabetes GERD (gastroesophageal reflux disease) Surgical History Hx of hernia repair Hx of appendectomy Hx of cholecystectomy Hx of ileostomy Social History Housing: House Are you a primary lawn care technician to a significant other at home: No Do you presently have visiting nurse or other home services: No Alcohol intake: never Patient Tobacco Use Status: Never used Tobacco e-Cigarette/Vaping Use: Never Used Second Hand Smoke Exposure: Yes service: No Current occupational status: employed 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 1. Little interest or pleasure in doing things: not at all 2. Feeling down, depressed, or hopeless: not at all 3. Trouble falling or staying asleep, or sleeping too much: not at all 4. Feeling tired or having little energy: not at all 5. Poor appetite or overeating: not at all 6. Feeling bad about yourself - or that you are a failure or have let yourself or your family down: not at all 7. Trouble concentrating on things, such as reading the newspaper or watching television: not at all 8. Moving or speaking so slowly that other people could have noticed. Or the opposite - being so fidgety or restless that you have been moving around a lot more than usual: not at all 9. Thoughts that you would be better off or of hurting yourself in some way: not at all Total score: 0 Depression Screening Interpretation: Negative Depression Screening Done: Yes 20465 - PHQ-9 Billing: Yes Source: Developed by Drs. Alvaro Miles, Corrie Li, Kailash Madera and colleagues, with an educational glenys from [employer]. Thrive Questionnaire Date Thrive assessed: 09/24/24 I am a: Patient What is your living situation today?: I have a steady place to live Within the past 12 months, did the food you bought not last and you didn't have the money to get more?: I choose not to answer this question Within the past 12 months, did you worry whether your food would run out before you got money to buy more?: I choose not to answer this question Do you have trouble paying for medicines?: I choose not to answer this question Do you have trouble getting transportation to medical appointments?: I choose not to answer this question Do you have trouble paying your heating and electricity bill?: I choose not to answer this question Do you have trouble taking care of your child, family member or friend?: I choose not to answer this question Do you have trouble with day-to-day activities such as bathing, preparing meals, shopping, managing finances, etc.?: I choose not to answer this question Are you currently unemployed and looking for a job?: I choose not to answer this question Are you interested in more education?: I choose not to answer this question Please select the resources that you would like help with: None Currently or been in a relationship where the following occur: I choose not to answer THRIVE Score: 0 MADDY-7 AMB Questionnaire MADDY-7 Date MADDY - 7 assessed: 09/24/24 Source: Developed by Drs. Alvaro Mlies, Corrie Li, Kailash Madera and colleagues, with an educational glenys from [employer]. Physical exam (Primary Care) Vital Signs: Last Vital Signs Temp 98.2 F 01/07/25 10:29 Pulse 78 01/07/25 10:29 Resp 17 01/07/25 10:29 BP 128/72 01/07/25 10:29 Pulse Ox 97 01/07/25 10:29 Oxygen Delivery Method Room Air 01/07/25 10:29 BMI result Body Mass Index 46.2 Tobacco/Smoking Status: Tobacco use Status Tobacco use date assessed 09/24/24 01/07/25 10:26 Patient Tobacco Use Status Never used Tobacco 01/07/25 10:26 e-Cigarette/Vaping Use Never Used 01/07/25 10:26 PHQ-9: PHQ-9 Score PHQ-9: Total score 0 01/07/25 10:54 Depression Screening Interpretation: Negative Thrive Assessment: Date of Thrive Assessment Date Thrive assessed 09/24/24 01/07/25 10:26 Currently or been in a relationship where the following occur: I choose not to answer Results AMB Hemoglobin A1c AMB Hemoglobin A1c 6.5 % Last Edit by Gia Bell CMA on 01/07/25 10:43 Results Reviewed Results Reviewed: Laboratory Last Values Hgb A1c (Clinic) 6.5 % (4.0-6.0) H 01/07/25 10:33 Coding Level of Care Code Est Pt Level 3 (47527) Diagnoses Diabetes E11.9 Sleep apnea G47.30 Discoloration of skin of multiple sites of lower extremity L81.9 Additional Codes PHQ-9 - 83968 - PHQ-9 Billing: Yes ([id number]) Assessment & Plan Assessment & Plan (1) Diabetes: Code(s): E11.9 - Type 2 diabetes mellitus without complications Category: Medical (2) Sleep apnea: Code(s): G47.30 - Sleep apnea, unspecified Category: Medical (3) Discoloration of skin of multiple sites of lower extremity: Code(s): L81.9 - Disorder of pigmentation, unspecified Category: Medical Plan . Orders: Orders Complete Blood Count Auto Diff Today E11.9 - Type 2 diabetes mellitus without complications Comprehensive [place]. Panel Fast Today E11.9 - Type 2 diabetes mellitus without complications Pneumococcal 20 Immunization Today Z23 - Encounter for immunization AMB Hemoglobin A1c Today E11.9 - Type 2 diabetes mellitus without complications TSH reflex Free T4 Today E11.9 - Type 2 diabetes mellitus without complications UA CC w/rflx Micro + Cult Today E11.9 - Type 2 diabetes mellitus without complications Lipid Panel Today E11.9 - Type 2 diabetes mellitus without complications US venous insuf bilat Today L81.9 - Disorder of pigmentation, unspecified Referrals Sleep Medicine Referral G47.30 - Sleep apnea, unspecified Medications: New pneumoc 20-daren conj-dip cr(PF) 0.5 mL IM ONCE 0.5 mL 0RF Z23 - Encounter for immunization cyclobenzaprine 5 mg PO BEDTIME PRN 30 tabs 0RF muscle spasm
[2025-01-07 10:29] VITALS: BP 128/72; PULSE 78; RESP 17; TEMP 36.8; O2SAT 97; BMI 46.2
--- OUTSIDE RECORDS SUMMARY | 2025-01-07 11:30 | XMS_ITS | Clinical Summary ---
Author Organization [facility] Address [address] [facility] [address] [place] [address] Phone Care Team Providers Care Greenstone Polisher Operator Name Role Phone Silvio Delong NP Primary Care Provider [phone] Allergies Active Allergy Reactions Criticality Noted Date Comments Haloperidol 06/24/2014 Other reaction(s): hallucinations Hallucination Medications omeprazole OTC (PriLOSEC OTC) 20 MG EC tablet Take 20 mg by mouth 1 Active Synjardy XR 12.5-1000 MG tablet sustained-relea se 24 hour Take 2 tablets by mouth 1 (one) time each day 5 Active gabapentin (NEURONTIN) 100 MG capsule Take 100 mg by mouth in the morning and 100 mg in the evening. 5 Active Ozempic, 0.25 or 0.5 MG/DOSE, 2 MG/3ML solution pen-injector 5 Active hydroCHLOROthia zide 25 MG tabletIndicatio ns:Hypertension ,Bilateral lower leg edema Take 1 tablet (25 mg total) by mouth 1 (one) time each day 30 tablet 11 5 10/31/19 26 Active irbesartan (AVAPRO) 75 MG tablet Take 2 tablets (150 mg total) by mouth 1 (one) time each day 90 tablet 3 5 Active irbesartan (AVAPRO) 75 MG tablet Take 2 tablets (150 mg total) by mouth 1 (one) time each day 90 tablet 3 4 12/19/19 25 Discontinu ed(Reorder (does not appear on AVS)) Active Problems Problem Noted Date Diagnosed Date Hypertension 05/05/2024 Bilateral lower leg edema 05/05/2024 Vitamin D deficiency, not otherwise specified Stage 1 chronic kidney disease 10/25/2021 Type 2 diabetes mellitus wit h diabetic chronic kidney disease 10/25/2021 Gilbert syndrome 10/21/2021 H/O Spinal surgery 10/21/2021 Incisional hernia 10/21/2021 Morbid obesity 10/21/2021 Type 2 diabetes mellitus in obese 10/21/2021 Encounters Date Type Department Care Team Description 12/18/2024 Refill [facility] [address] [address] Alayna Low [place] 10/30/2024 8:00 AM EDT Office Visit [facility] [address] [address] Viktoria Kim ARNP Hypertension (Primary Dx); Bilateral lower leg edema; Vitamin D deficiency, not otherwise specified 10/17/2024 Refill [facility] [address] [address] Kierra Molina from Last 3 Months Family History Medical History Relation Comments Cancer [...] Sign Reading Time Taken Comments Blood Pressure 110/80 10/30/2024 8:16 AM EDT Pulse 80 10/30/2024 7:48 AM EDT Temperature - - Respiratory Rate - - Oxygen Saturation 97% 12/05/2023 7:50 AM EDT Inhaled Oxygen Concentration - - Weight 186 kg (410 lb) 10/30/2024 7:48 AM EDT Height 200.7 cm (6' 7 ) 10/25/2021 4:35 PM EDT Body Mass Index 46.19 10/25/2021 4:35 PM EDT Plan of Treatment Upcoming Encounters Date Type Department Care Team (Late st Contact Info) Description 01/29/2025 8:15 AM EDT Office Visit [facility] [address] [address] Viktoria Kim ARNP [address] [address] Health Maintenance Due Date Last Done Comments Hepatitis B Vaccine (1 of 3 - 19+ 3-dose series) 03/12 Pneumococcal Vaccine: 50+ Years (1 of 2 - PCV) 993 Diabetes: Hemoglobin A1C 10/11/2021 Diabetes: Ophthalmology Exam 10/11/2021 Diabetes: Pedal Pulse Checked 10/11/2021 Diabetes: Sensory Foot Exam 10/11/2021 Diabetes: Visual Foot Exam 10/11/2021 Colorectal Cancer Screening: Annual FOBT 2023 Colorectal Cancer Screening: Colonoscopy 2023 Colorectal Cancer Screening: Sigmoidoscopy 2023 Influenza Vaccine (Season Ended) 2025 Insurance [facility] Graham([id number]) [facility] LEIJA Blue([id number]) Care Teams Greenstone Polisher Operator Relationship Specialty Start Date End Date Silvio Delong NP [facility] [place] [address] PCP - General Nurse Practitioner 10/11/21
== END 2025-01-07 11:32 | disposition home or self-care (01) ==
LOC: HO.HMCC 10:22
PROVIDERS: PCP Nurse Practitioner Family; Visit Provider Nurse Practitioner Family
DX: E11.9 Type 2 diabetes mellitus without complications (principal); G47.30 Sleep apnea, unspecified; L81.9 Disorder of pigmentation, unspecified; Z23 Encounter for immunization

== ENCOUNTER → 2025-01-07 10:21 | Outpatient (BNVA) | payer BC, SELFPAY | PROVIDERS: PCP Nurse Practitioner Family; Visit Provider Nurse Practitioner Family | DX: E11.9 Type 2 diabetes mellitus without complications (principal); R53.83 Other fatigue; E66.01 Morbid (severe) obesity due to excess calories; G47.33 Obstructive sleep apnea (adult) (pediatric); L81.9 Disorder of pigmentation, unspecified; Z23 Encounter for immunization; Z68.42 Body mass index [BMI] 45.0-49.9, adult | CPT/HCPCS: 83036; 90471; 90677; 96127 ==

== ENCOUNTER 2025-02-05 08:22 | Outpatient (REF) | payer BC, SELFPAY ==
--- NOTE | ~2025-02-05 | US_ITS ---
EXAMINATION: US LOWER EXTREMITY VENOUS (REFLUX EXAM), BILATERAL CLINICAL INFORMATION: Venous insufficiency, varicose veins COMPARISON: None. TECHNIQUE: Color flow triplex imaging and compression Doppler was performed to evaluate both the deep and the superficial systems bilaterally. To evaluate the superficial system, the examination was performed in the upright position. Color-flow Doppler ultrasound and compression ultrasound were utilized. In addition, maneuvers were utilized to demonstrate reflux. FINDINGS: 1. DEEP VENOUS ULTRASOUND OF THE RIGHT LOWER EXTREMITY: Common Femoral Vein: Compressible, normal respiratory variation and augmented flow. Femoral Vein: Compressible, normal color flow and augmentation. Popliteal Vein: Compressible, normal augmentation. Deep Reflux: There is no evidence of reflux in the deep system in either the common femoral vein, superficial femoral or the popliteal vein. There is no evidence of a Duff's cyst. 2. SUPERFICIAL ULTRASOUND WITH DOPPLER OF RIGHT LOWER EXTREMITY: GREAT SAPHENOUS VEIN: Saphenofemoral Junction: 0.9 cm; Reflux: 0 ms Proximal Thigh: 0.7 cm; Reflux: 0 ms Mid Thigh: 0.4 cm; Reflux: > 2700 ms Distal Thigh: 0.7 cm; Reflux: > 2700 ms At Knee: 0.7 cm; Reflux: > 2500 ms Proximal Calf: 0.5 cm; Reflux: 0 ms Mid Calf: 0.4 cm; Reflux: 2500 ms Distal Calf: 0.2 cm; Reflux: 0 ms Lateral accessory GREAT SAPHENOUS VEIN: Saphenofemoral Junction: 1.1 cm; Reflux: 2800 ms Mid Thigh: 0.4 cm; Reflux: 0 ms SMALL SAPHENOUS VEIN: Drainage: Popliteal vein Saphenopopliteal Junction: 0.4 cm; Reflux: 0 ms Mid calf: 0.3 cm; Reflux: 0 ms Distal: 0.3 cm; Reflux: 800 ms VEIN OF GIACOMINI: Size: 0.5 cm Reflux: 0 ms PERFORATORS: Location: Greater saphenous vein, mid calf Size: 0.2 cm Reflux: 0 ms Location: Greater saphenous vein to varicosity, 27 cm cephalad to the calcaneus Size: 0.3 cm Reflux: 1700 ms VARICOSITIES > 3mm: Location: Small saphenous vein, midcalf Size: 0.5 cm Reflux: 0 ms Location: Accessory saphenous vein, lateral and proximal Size: 1.0 cm Reflux: 908 ms Location: Greater saphenous vein, proximal thigh Size: 0.4 cm Reflux: 0 ms Location: Greater saphenous vein, mid thigh Size: 0.3 cm Reflux: > 2900 ms Location: Greater saphenous vein, mid thigh Size: 0.5 cm Reflux: 2200 ms Location: greater saphenous vein, distal thigh Size: 0.3 cm Reflux: 0 ms Location: Greater saphenous vein, at knee Size: 0.4 cm Reflux: 0 ms Location: Greater saphenous vein, at knee Size: 0.9 cm Reflux: > 2900 ms Location: Greater saphenous vein, proximal calf Size: 0.4 cm Reflux: 2700 ms Location: Posterior saphenous vein, proximal calf Size: 0.8 cm Reflux: > 3000 ms Location: Greater saphenous vein, midcalf Size: 0.4 cm Reflux: > 2700 ms Location: Mid thigh, lateral Size: 0.4 cm Reflux: 0 ms 3. DEEP VENOUS ULTRASOUND OF THE LEFT LOWER EXTREMITY: Common Femoral Vein: Compressible, normal respiratory variation and augmented flow. Femoral Vein: Compressible, normal color flow and augmentation. Popliteal Vein: Compressible, normal augmentation. Deep Reflux: There is no evidence of reflux in the deep system in either the common femoral vein, superficial femoral or the popliteal vein. 4. SUPERFICIAL ULTRASOUND WITH DOPPLER OF LEFT LOWER EXTREMITY: GREAT SAPHENOUS VEIN: Saphenofemoral Junction: 0.7 cm; Reflux: 0 ms Proximal Thigh: 0.7 cm; Reflux: 2400 ms Mid Thigh: 0.5 cm; Reflux: 0 ms Distal Thigh: 0.4 cm; Reflux: 0 ms At Knee: 0.6 cm; Reflux: 0 ms Below Knee/Proximl calf: 0.3 cm; Reflux: 0 ms Mid Calf: 0.3 cm; Reflux: 0 ms Distal Calf/Ankle: 0.3 cm; Reflux: 0 ms Lateral accessory GREAT SAPHENOUS VEIN: Saphenofemoral Junction: 0.6 cm; Reflux: 1300 ms Mid Thigh: 0.1 cm; Reflux: 0 ms SMALL SAPHENOUS VEIN: Drainage: Popliteal vein Saphenopopliteal Junction: 0.7 cm; Reflux: 0 ms Mid calf: 0.4 cm; Reflux: 0 ms Distal calf: 0.5 cm; Reflux: 0 ms VEIN OF GIACOMINI: None imaged PERFORATORS: Location: Small saphenous vein into varicosity, proximal calf Size: 0.3 cm Reflux: 0 ms Location: Greater saphenous vein, proximal calf Size: 0.2 cm Reflux: 0 ms Location: Greater saphenous vein, proximal calf Size: 0.5 cm Reflux: 0 ms Location: Greater saphenous vein into varicosity, mid calf Size: 0.3 cm Reflux: 0 ms VARICOSITIES > 3mm: Location: Small saphenous vein, proximal calf Size: 0.4 cm Reflux: 0 ms Location: Accessory saphenous vein, proximal thigh and lateral Size: 0.7 cm Reflux: 0 ms Location: Greater saphenous vein, proximal thigh Size: 0.3 cm Reflux: > 2900 ms Location: Greater saphenous vein, proximal thigh Size: 0.6 cm Reflux: 0 ms Location: Greater saphenous vein, proximal thigh Size: 0.4 cm Reflux: 1800 ms Location: Greater saphenous vein, midthigh Size: 0.6 cm Reflux: > 2800 ms Location: Greater saphenous vein, distal calf Size: 0.4 cm Reflux: 0 ms Location: Greater saphenous vein, distal calf Size: 0.3 cm Reflux: 0 ms US/US venous insuf bilat IMPRESSION: Right: There is venous incompetence of the superficial veins, as detailed above, with numerous refluxing varicosities and a refluxing physician assistant certified Left: Venous incompetence with refluxing varicosities, as detailed above. Electronically signed by: Jonathan Galloway MD 02/05/2025 10:47 AM EDT
--- OUTSIDE RECORDS SUMMARY | 2025-02-05 08:35 | XMS_ITS | Clinical Summary ---
Author Organization [facility] Address [address] [facility] [address] [place] [address] Phone Care Team Providers Care Upholstery Auto Trimmer Name Role Phone Silvio Delong NP Primary Care Provider [phone] Allergies Active Allergy Reactions Criticality Noted Date Comments Haloperidol 06/24/2014 Other reaction(s): hallucinations Hallucination Medications omeprazole OTC (PriLOSEC OTC) 20 MG EC tablet Take 20 mg by mouth 11/05/2020 Active Synjardy XR 12.5-1000 MG tablet sustained-relea se 24 hour Take 2 tablets by mouth 1 (one) time each day 10/19/2024 Active gabapentin (NEURONTIN) 100 MG capsule Take 100 mg by mouth in the morning and 100 mg in the evening. 09/24/2024 Active Ozempic, 0.25 or 0.5 MG/DOSE, 2 MG/3ML solution pen-injector 10/29/2024 Active hydroCHLOROthia zide 25 MG tabletIndicatio ns:Hypertension ,Bilateral lower leg edema Take 1 tablet (25 mg total) by mouth 1 (one) time each day 30 tablet 11 10/30/2024 Active irbesartan (AVAPRO) 75 MG tablet Take 2 tablets (150 mg total) by mouth 1 (one) time each day 90 tablet 3 12/18/2024 Active Active Problems Problem Noted Date Diagnosed [...] 12/18/2024 [facility]ill [facility] [address] [facility] [address] [place] [address] Alayna Low MA from Last 3 Months Family History Medical [...] 10/25/2021 4:35 PM EDT Plan of Treatment Health Maintenance Due Date Last Done Comments [...] Cancer Screening: Sigmoidoscopy 2023 Influenza Vaccine (#1) 2025 Insurance [facility] PPO Blue([id number]) [facility] PPO Blue([id number]) Care Teams Upholstery Auto Trimmer Relationship Specialty Start Date End Date Silvio Del[place] [address] PCP - General Nurse Practitioner 10/11/21
--- OUTSIDE RECORDS SUMMARY | 2025-02-05 08:35 | XMS_ITS | Patient Health Record ---
Author Organization [facility] [place] Address [address] [place] [address] Care Team Providers Care Office Support Name Role Phone Mery STEVE, Adolph Primary Care Provider Mike Mcdonald Unavailable [phone] Allergies Allergen (clinical drug ingredient) Drug/Non Drug Allergy documented on EMR Reaction Allergy Type Onset Date Status shellfish heart stopped Drug Allergy Act concha Reason For Referral No Information Medications Medication SIG (Take, Route, Fr equency, Duration) Notes Start Date End Date Status metFORMIN HCl 500 MG 1 tablet with meals Orally Twice a day; Duration: 30 day(s) Active Problems Problem Type SNOMED Code ICD Code Onset Dates Problem Status W/U Status Risk Notes 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 Mass (unspec.) (239.2) Active confirmed Problem Type II diabetes mellitus without complication (122889110) Diabetic - NIDDM (250.00) Active confirmed Plan Of Treatment No Information Insurance Providers Payer Name Payer Address Payer Phone Subscriber Number Group Number Insured Name Patient Relationship to Insured Coverage Start Date Coverage End Date [employer] [address] [place] [address] [id number] Avery Sauer Self - patient is the insured Medical (General) History Medical History History ICD Code type II diabetes Surgical History Surgery Date(Month/Year) ileostomy (industrial accident) 05/2007
== END 2025-02-05 08:23 | disposition home or self-care (01) ==
LOC: HO.US 08:22
PROVIDERS: PCP Nurse Practitioner Family; Visit Provider Nurse Practitioner Family
DX: M79.89 Other specified soft tissue disorders (principal); L81.9 Disorder of pigmentation, unspecified; I87.2 Venous insufficiency (chronic) (peripheral); E66.01 Morbid (severe) obesity due to excess calories; E11.9 Type 2 diabetes mellitus without complications
CPT/HCPCS: 93970

== ENCOUNTER → 2025-02-05 08:26 | Outpatient (BNV) | payer BC, SELFPAY | PROVIDERS: PCP Nurse Practitioner Family; Visit Provider Radiology Diagnostic Radiology | DX: L81.9 Disorder of pigmentation, unspecified (principal) | CPT/HCPCS: 93970 ==

== ENCOUNTER 2025-05-14 08:58 | Outpatient (AMB) | payer BC, SELFPAY ==
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
[2025-05-14 09:05] VITALS: BP 130/82; PULSE 76; RESP 16; TEMP 36.8; O2SAT 99; BMI 45.1
--- OUTSIDE RECORDS SUMMARY | 2025-05-14 10:02 | XMS_ITS | Patient Health Record ---
Author Organization [facility] [place] Address [address] [place] [address] Care Team Providers Care Mat Machine Tender Name Role Phone Mery STEVE, Adolph Primary Care Provider Mike Mcdonald Unavailable [phone] Allergies Allergen (clinical drug ingredient) Drug/Non Drug [...] behavior of connective and other soft tissues ([id number]) S.T. [place] (unspec.) (239.2) Active confirmed Problem Type II diabetes mellitus without complication (203547710) Diabetic - NIDDM (250.00) Active confirmed Plan Of Treatment No Information Insurance Providers Payer Name Payer Address Payer Phone Subscriber Number Group Number Insured Name Patient Relationship to Insured Coverage Start Date Coverage End Date [employer] [address] [place] [address] [phone] [id number] Avery Sauer Self - patient is the insured Medical (General) History Medical History History ICD Code type II diabetes Surgical History Surgery Date(Month/Year) ileostomy (industrial accident) 05/2007
== END 2025-05-14 09:54 | disposition home or self-care (01) ==
LOC: HO.HMCC 08:59
PROVIDERS: PCP Nurse Practitioner Family; Visit Provider Nurse Practitioner Family
DX: E11.9 Type 2 diabetes mellitus without complications (principal); W57.XXXA Bitten or stung by nonvenomous insect and other nonvenomous arthropods, initial encounter; E55.9 Vitamin D deficiency, unspecified; Z13.9 Encounter for screening, unspecified

== ENCOUNTER → 2025-05-14 08:58 | Outpatient (BNVA) | payer BC, SELFPAY | PROVIDERS: PCP Nurse Practitioner Family; Visit Provider Nurse Practitioner Family | DX: E11.9 Type 2 diabetes mellitus without complications (principal); E55.9 Vitamin D deficiency, unspecified; T14.8XXA Other injury of unspecified body region, initial encounter; W57.XXXA Bitten or stung by nonvenomous insect and other nonvenomous arthropods, initial encounter; Y93.9 Activity, unspecified; Y92.9 Unspecified place or not applicable; Y99.9 Unspecified external cause status | CPT/HCPCS: 83036; 96127 ==

== ENCOUNTER 2025-06-09 11:12 | Outpatient (REF) | payer BC, SELFPAY ==
[2025-06-09 13:11] LABS: MANUAL DIFF FLAG NO
[2025-06-09 13:18] LABS: Appearance Urine Clear; Glucose Urine UA >=1000 mg/dL (Negative); Hematocrit 50.9 % (42.0-52.0); Hemoglobin 16.5 g/dl (14.0-18.0); Imm Gran Abs Auto 0.06 X10*3/uL (0.00-0.03); Imm Gran Pct Auto 0.5 % (0.0-0.4); Lymphocytes Absolute Auto 3.5 X10*3/uL (1.2-4.9); Mean Corpuscular HGB Conc 32.4 g/dl (31.0-36.0); Mean Corpuscular Hemoglobin 28.4 pg (27.0-33.0); Mean Corpuscular Volume 87.8 fL (80.0-98.0); NRBC Abs Auto 0.000 X10*3/uL (0.0-0.012); NRBC Pct Auto 0.0 /100WBC (0.0-0.2); PH 5.0 (5.0-9.0); Platelet Count 275 X10*3/uL (160-400); Red Blood Count 5.80 X10*6/uL (4.60-5.80); Specific Gravity - Urine 1.025 (1.005-1.025); UMIC TRIGGER UACC YES; White Blood Count 12.6 X10*3/uL (4.8-10.8)
[2025-06-09 17:05] LABS: Anion Gap 15 (12-20)
[2025-06-09 17:11] LABS: Alanine Aminotransferase 27 U/L (0-40); Albumin Level 4.3 g/dL (3.5-5.0); Alkaline Phosphatase 86 U/L (39-117); Aspartate Amino Transferase 34 U/L (5-37); Blood Urea Nitrogen 19 mg/dL (9-16); Calcium 9.4 mg/dL (8.4-10.2); Carbon Dioxide 22 mmol/L (22-29); Chloride 105 mmol/L (96-108); Cholesterol 126 mg/dL (<200); Estimated Glomerular Filt Rate > 60; HDL Cholesterol 48 mg/dL (>40); Potassium 3.7 mmol/L (3.3-5.1); Sodium 138 mmol/L (135-145); Total Protein 7.2 g/dL (6.5-8.0); Triglycerides 121 mg/dL (<150)
[2025-06-09 17:34] LABS: Free T4 (Free Thyroxine) 1.37 ng/dL (0.71-1.85)
[2025-06-10 06:17] LABS: Lyme Abs Screen <0.90 index
[2025-06-11 06:28] LABS: A. Phagocytphilium DNA,RT-PCR NOT DETECTED (NOT DETECTED); Babesia Microti DNA, RT-PCR NOT DETECTED (NOT DETECTED); Borrelia Miyamotoi,DNA RT-PCR NOT DETECTED (NOT DETECTED); E.Chaffeensis DNA RT-PCR NOT DETECTED (NOT DETECTED); Lyme(Borrelia ssp)DNA RT-PCR NOT DETECTED (NOT DETECTED)
== END 2025-06-09 11:13 | disposition home or self-care (01) ==
LOC: HO.HMGCLDS 11:12
PROVIDERS: PCP Nurse Practitioner Family; Visit Provider Nurse Practitioner Family
DX: Z01.84 Encounter for antibody response examination (principal); Z12.5 Encounter for screening for malignant neoplasm of prostate; E11.9 Type 2 diabetes mellitus without complications; E55.9 Vitamin D deficiency, unspecified; W57.XXXA Bitten or stung by nonvenomous insect and other nonvenomous arthropods, initial encounter
CPT/HCPCS: 36415; 80053; 80061; 81001; 84153; 84439; 84443; 85025; 86617; 86618; 87468; 87469; 87478; 87484; 87798

== ENCOUNTER 2025-06-11 13:37 | Outpatient (REF) | payer BC, SELFPAY ==
--- NOTE | ~2025-06-11 | XR_ITS ---
EXAMINATION: XR CHEST 2 VIEWS HISTORY: R05.9 - Cough, unspecified COMPARISON: Comparison is made with the prior examination dated 10/05/2011. FINDINGS: PA and lateral views of the chest are submitted. The lungs are expanded and clear. There is no pleural effusion, pneumothorax, or pulmonary vascular congestion. The heart is normal in size. There is degenerative disc disease of the spine. XR/XR chest 2V IMPRESSION: No acute cardiopulmonary abnormality. Electronically signed by: Alvaro Mayer MD 06/11/2025 02:03 PM [facility]
--- OUTSIDE RECORDS SUMMARY | 2025-06-11 16:44 | XMS_ITS | Clinical Summary ---
Author Organization [facility] Address [address] [place] [phone] Phone Care Team Providers Care Design Tech Name Role Phone Silvio Delong NP Primary Care Provider [phone] Allergies Active Allergy Reactions Criticality Noted Date [...] Encounters Date Type Department Care Team Description 04/13/2025 Orders Only [facility] [address] [facility] [address] [place] [address] Viktoria Kim ARNP Hypertension; Bilateral lower leg edema; Vitamin D deficiency, not otherwise specified from Last 3 Months Family History Medical [...] Sigmoidoscopy 2023 Influenza Vaccine (#1) 2025 Insurance [facility] Care Teams Design Tech Relationship Specialty Start Date End Date Silvio Delong NP [facility] [place] [address] PCP - General Nurse Practitioner 10/11/21
== END 2025-06-11 13:38 | disposition home or self-care (01) ==
LOC: HO.HMGCX 13:37
PROVIDERS: PCP Nurse Practitioner Family; Visit Provider Nurse Practitioner Family
DX: R05.9 Cough, unspecified (principal)
CPT/HCPCS: 71046

== ENCOUNTER → 2025-06-11 13:40 | Outpatient (BNV) | payer BC, SELFPAY | PROVIDERS: PCP Nurse Practitioner Family; Visit Provider Radiology Diagnostic Radiology | DX: R05.9 Cough, unspecified (principal) | CPT/HCPCS: 71046 ==

== ENCOUNTER 2025-06-16 09:29 | Outpatient (REF) | payer BC, SELFPAY ==
--- NOTE | ~2025-06-16 | US_ITS ---
EXAMINATION: US THYROID HISTORY: R79.89 - Other specified abnormal findings of blood chemistry TECHNIQUE: Real-time grayscale ultrasound imaging was performed and images were reviewed. COMPARISON: There are no prior studies available for comparison. FINDINGS: SIZE: The right thyroid lobe measures 5.6 x 3.4 x 2.7 cm. The left thyroid lobe measures 5.1 x 2.1 x 1.5 cm. The isthmus measures 0.5 mm. FLOW: Flow to the gland is normal. ECHOGENICITY: The right lobe echotexture is heterogeneous. The left lobe echotexture is normal. NODULES: 1. Location: Right mid. Size: 2.6 x 2.1 x 2.3 cm, volume 6.7 mL. Nodule characteristics: Composition: Solid/almost completely solid (2). Echogenicity: Hypoechoic (2) Shape: Not taller than wide (0). Margins: Smooth (0). Echogenic Foci: Punctate echogenic foci (3). ACR TI-RADS total points: 7 ACR TI-RADS category: 5 2. Location: Right mid. Size: 2.9 x 1.7 x 2.7 cm, volume 7 mL. Nodule characteristics: Composition: Solid (2). Echogenicity: Hypoechoic (2). Shape: Not taller than wide (0). Margins: Echogenic Foci: Punctate echogenic foci (3). ACR TI-RADS total points: 7 ACR TI-RADS category: 5 3. Location: Right lower. Size: 1.6 x 1.1 x 1.3 cm, volume 1.2 mL. Nodule characteristics: Composition: Solid (2). Echogenicity: Hypoechoic (2). Shape: Not taller than wide (0). Margins: Lobulated (2). Echogenic Foci: None (0). ACR TI-RADS total points: 6 ACR TI-RADS category: 4 4. Location: Left lower. Question exophytic thyroid nodule versus parathyroid adenoma. Size: 1.3 x 1.3 x 0.9 cm, volume 0.8 mL. Nodule characteristics: Composition: Solid (2). Echogenicity: Hypoechoic (2). Shape: Taller than wide (3). Margins: Smooth (0). Echogenic Foci: None (0). ACR TI-RADS total points: 7 ACR TI-RADS category: 5 No enlarged lymph nodes. US/US thyroid IMPRESSION: Heterogeneous thyroid gland with bilateral thyroid nodules and enlarged right lobe. All 3 right thyroid nodules meet TI RADS criteria for fine-needle aspiration. Question exophytic hypoechoic nodule to the left lower lobe versus parathyroid adenoma. Recommend correlation with serum calcium and PTH level. ACR TI-RADS Guidelines ACR TI-RADS RECOMMENDATION REFERENCE: Ultrasound-guided fine-needle aspiration, followup ultrasound, no further follow up. * TR1 (0 point) and TR2 (2 points): No FNA or follow up. * TR3 (3 points): FNA if more than or equal to 2.5 cm in maximum dimension, followup ultrasound in 1, 3 and 5 years if 1.5 to 2.4 cm in maximum dimension. * TR4 (4-6 points): FNA if more than or equal to 1.5 cm in maximum dimension, followup ultrasound in 1, 2, 3 and 5 years if 1 to 1.4 cm in maximum dimension. * TR5 (more than or equal to 7 points): FNA if more than or equal to 1 cm in maximum dimension, followup ultrasound every year for 5 years if 0.5 to 0.9 cm in maximum dimension. * TR3, TR4 or TR5 nodules that are below the size threshold for followup receive no follow up. Electronically signed by: Clementine Mccain MD 06/16/2025 11:08 AM [facility]
== END 2025-06-16 09:30 | disposition home or self-care (01) ==
LOC: HO.HMGCX 09:29
PROVIDERS: PCP Nurse Practitioner Family; Visit Provider Nurse Practitioner Family
DX: R79.89 Other specified abnormal findings of blood chemistry (principal)
CPT/HCPCS: 76536

== ENCOUNTER → 2025-06-16 09:32 | Outpatient (BNV) | payer BC, SELFPAY | PROVIDERS: PCP Nurse Practitioner Family; Visit Provider Radiology Diagnostic Radiology | DX: E04.2 Nontoxic multinodular goiter (principal); E07.89 Other specified disorders of thyroid | CPT/HCPCS: 76536 ==

== ENCOUNTER 2025-06-23 15:16 | Outpatient (AMB) | payer BC, SELFPAY ==
--- NOTE | 2025-06-23 15:21 | MHC.OFFVIS ---
Vital Signs 06/23/25 15:24 Height 6 ft 6 in Weight 392 lb 10.292 oz BMI 45.4 BP 124/86 Blood Pressure Location Rt brachial Position Sitting Pulse 76 Pulse Source Pulse Oximeter Pulse Oximetry (%) 96 Oxygen Delivery Method Room Air Intake Visit Reasons: Nontoxic multinodular goiter Intake Note: New patient internally referred by PCP for NTMNG. Online Content Coordinator Required: No Accompanied by: Spouse Allergies iodine (IODINE) Allergy (Intermediate, Verified 06/23/25 15:24) HIVES haloperidol (From Haldol) Allergy (Unknown, Verified 06/23/25 15:24) Unknown shellfish derived Allergy (Unknown, Verified 06/23/25 15:24) Shortness of Breath sitagliptin (Januvia) Allergy (Unknown, Verified 06/23/25 15:24) diarrhea hydromorphone (From Dilaudid) Allergy (Verified 06/23/25 15:24) Nausea [id number] Reductase Inhibitor Adverse Reaction (Severe, Verified 06/23/25 15:24) Unknown Medication List - Last Reconciled 06/23/25 by Alvaro Brower MD alcohol swabs (Alcohol Prep Pads) 1 pad topical TID 30 days azithromycin For 250 mg dose pack: take 500 mg today (day 1), then 250 mg for 4 days (days 2-5) PO blood sugar diagnostic (FreeStyle Lite Strips) test BS 3 times every day blood-glucose meter (FreeStyle Lite Meter kit) test blood sugar 3 times daily cyclobenzaprine 5 mg PO BEDTIME PRN doxycycline hyclate 200 mg (2 x 100 mg) PO ONCE 1 day empagliflozin-metformin 12.5-1,000 mg ER (Synjardy XR) 2 tabs (2 x 12.5-1,000 mg) PO DAILY ezetimibe 10 mg PO DAILY gabapentin 100 mg PO BID 30 days hydrochlorothiazide 12.5 mg PO DAILY ibuprofen 600 mg PO Q6H PRN irbesartan 75 mg PO DAILY 30 days lancets (FreeStyle Lancets) test BS 3 times daily omeprazole 20 mg PO DAILY HPI Comments Details: 50 YO M who is seen in consultation for multinodular thyroid at the request of PCP. Was initially diagnosed with multinodular thyroid in recently with thyroid US revealing []. Currently has any dysphagia and hoarseness of voice. Denies sensation of swelling in the neck has difficulty breathing while lying flat. Has any tenderness in the neck for 1 wk . Has any palpitations, tremors, weight loss with Ozempic ,- frequent bowel movements. Denies any ocular complaints, blurred or double vision. Denies hair loss, dry skin, heat or cold intolerance, weight gain, confusion. Denies any history of head or neck irradiation. Denies any family history of thyroid cancer. Family hx of hypothyroidism and hyperthyroidism Not Had biopsy of nodules in the past. No biotin or kelp supplement s Thyroid US:06/16/25: EXAMINATION: US THYROID HISTORY: R79.89 - Other specified abnormal findings of blood chemistry TECHNIQUE: Real-time grayscale ultrasound imaging was performed and images were reviewed. COMPARISON: There are no prior studies available for comparison. FINDINGS: SIZE: The right thyroid lobe measures 5.6 x 3.4 x 2.7 cm. The left thyroid lobe measures 5.1 x 2.1 x 1.5 cm. The isthmus measures 0.5 mm. FLOW: Flow to the gland is normal. ECHOGENICITY: The right lobe echotexture is heterogeneous. The left lobe echotexture is normal. NODULES: 1. Location: Right mid. Size: 2.6 x 2.1 x 2.3 cm, volume 6.7 mL. Nodule characteristics: Composition: Solid/almost completely solid (2). Echogenicity: Hypoechoic (2) Shape: Not taller than wide (0). Margins: Smooth (0). Echogenic Foci: Punctate echogenic foci (3). ACR TI-RADS total points: 7 ACR TI-RADS category: 5 2. Location: Right mid. Size: 2.9 x 1.7 x 2.7 cm, volume 7 mL. Nodule characteristics: Composition: Solid (2). Echogenicity: Hypoechoic (2). Shape: Not taller than wide (0). Margins: Echogenic Foci: Punctate echogenic foci (3). ACR TI-RADS total points: 7 ACR TI-RADS category: 5 3. Location: Right lower. Size: 1.6 x 1.1 x 1.3 cm, volume 1.2 mL. Nodule characteristics: Composition: Solid (2). Echogenicity: Hypoechoic (2). Shape: Not taller than wide (0). Margins: Lobulated (2). Echogenic Foci: None (0). ACR TI-RADS total points: 6 ACR TI-RADS category: 4 4. Location: Left lower. Question exophytic thyroid nodule versus parathyroid adenoma. Size: 1.3 x 1.3 x 0.9 cm, volume 0.8 mL. Nodule characteristics: Composition: Solid (2). Echogenicity: Hypoechoic (2). Shape: Taller than wide (3). Margins: Smooth (0). Echogenic Foci: None (0). ACR TI-RADS total points: 7 ACR TI-RADS category: 5 No enlarged lymph nodes. US/US thyroid IMPRESSION: Heterogeneous thyroid gland with bilateral thyroid nodules and enlarged right lobe. All 3 right thyroid nodules meet TI RADS criteria for fine-needle aspiration. Question exophytic hypoechoic nodule to the left lower lobe versus parathyroid adenoma. Recommend correlation with serum calcium and PTH level. Labs: TSH= 0.02 The patient is a 50 year old male presenting for evaluation of recently discovered thyroid nodules. The nodules were discovered after a recent blood test revealed low TSH and a high white blood cell count. He reports associated symptoms including on-and-off dysphagia, a persistent sore throat, constant congestion, and some hoarseness of his voice. He experiences significant difficulty breathing and a choking sensation when lying flat, along with waking up with both nostrils blocked. While supine, he also hears a whistling or snapping sound when breathing. He notes some neck tenderness for the past few weeks to a month and reports experiencing occasional palpitations and hand tremors, which are new for him. Past medical history is significant for an intestinal puncture in 2006 that required surgery, and he has had altered bowel habits since. He denies any history of radiation treatment to his head or neck. His mother and older brother have a history of thyroid problems, described as hypothyroidism. The patient has no personal history of a thyroid nodule biopsy. He lost 30 pounds while previously taking Ozempic, which has since been discontinued. He denies taking biotin or kelp supplements. [facility] Medical History Retinopathy History of anal fissures Personal history of penetrating abdominal trauma Niles syndrome CKD (chronic kidney disease) stage 1, GFR 90 ml/min or greater Chronic kidney disease Diabetes GERD (gastroesophageal reflux disease) Surgical History Hx of hernia repair Hx of appendectomy Hx of cholecystectomy Hx of ileostomy Social History Housing: House Are you a primary care nurse rn to a significant other at home: No Do you presently have visiting nurse or other home services: No Alcohol intake: never Patient Tobacco Use Status: Never used Tobacco e-Cigarette/Vaping Use: Never Used Second Hand Smoke Exposure: Yes service: No Current occupational status: employed 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 Thyroid gland measure 15 gms . No nodules or tenderness palpated. There is no cervical adenopathy palpated. Lungs CTA. Heart S1, S2 Reg R/R -M/R/G. Abdominal exam benign. Skin exam reveals absence of dryness or thyroid dermopathy or vitiligo. Nail exam reveals absence of thyroid acropachy or oncholysis. Neurologic exam reveals 2+ reflexes . Muscle Strength is 5/5 proximally. There are no tremors in upper extremities. Miranda's sign is negative Assessment & Plan Assessment & Plan (1) Multiple thyroid nodules: Code(s): E04.2 - Nontoxic multinodular goiter Category: Medical Plan: This is a 50-year-old white male with a history of multinodular goiter in the standing of suppressed TSH. Rule out toxic multinodular goiter or toxic nodule. Plan is to do an iodine 123 uptake and scan and then correlate with thyroid ultrasound. Patient will be sent to follow up with Dr. Nagel on her return who can perform an ultrasound correlated with the scan and perform any FNA that is necessary 1. Multinodular Goiter with Subclinical Hyperthyroidism The patient's low TSH and multiple suspicious nodules on ultrasound require further evaluation. The hyperthyroidism could be caused by Graves' disease, thyroiditis, or one or more toxic ( hot ) nodules. His compressive symptoms, such as dysphagia and dyspnea when supine, may be related to the goiter. The plan is to clarify the etiology and determine the need for biopsy. An Iodine-123 uptake and scan will be ordered to differentiate metabolically active ( hot ) nodules from inactive ( cold ) nodules, as hot nodules rarely require biopsy. Thyroid function tests (TSH, free T4, free T3) will be repeated. I will refer him to Dr. Nagel for follow-up and potential ultrasound-guided FNA of any cold, suspicious nodules after she returns from maternity leave. Given his stable heart rate, medical therapy for hyperthyroidism is not indicated at this time. In addition, his primary care provider ordered TR ab antibodies. It does not appear that his symptoms are related for to obstruction from the thyroid but more likely appear to be post-nasal in nature The patient had an opportunity to ask questions regarding treatment plan. The patient expressed understanding and agreement with the above treatment plan. Patient was informed and verbally consented to the use of an ambient scribe for clinic note documentation during this visit. Orders: Orders Thyroid Stimulating Hormone Today E04.2 - Nontoxic multinodular goiter Triiodothyronine T3 Free Today E04.2 - Nontoxic multinodular goiter Free T4 (Free Thyroxine) Today E04.2 - Nontoxic multinodular goiter NM thyroid w uptake Today E04.2 - Nontoxic multinodular goiter Coding Level of Care Code New Pt Level 4 (70935) Diagnoses Multiple thyroid nodules E04.2
[2025-06-23 15:24] VITALS: BP 124/86; PULSE 76; O2SAT 96; BMI 45.4
== END 2025-06-23 16:15 | disposition home or self-care (01) ==
LOC: HO.ENCR 15:17
PROVIDERS: PCP Nurse Practitioner Family; Visit Provider Internal Medicine Endocrinology, Diabetes & Metabolism
DX: E04.2 Nontoxic multinodular goiter (principal)
CPT/HCPCS: 99204